=== PATIENT | male | born 1950 | race Caucasian/White ===

== ENCOUNTER 2016-07-07 03:21 | Day surgery (SDC) | payer OTHER ==
[2016-07-06 09:56] VITALS: BP 154/81
[2016-07-06 10:39] LABS: BASOPHIL % 0.2 % (0.0-0.2); EOSINOPHIL % 0.2 % (0.0-5.0); HEMATOCRIT 42.6 % (37.0-53.0); HEMOGLOBIN 15.2 g/dL (13.9-16.3); LYMPHOCYTES # 2.2 10^3/uL (1.0-4.8); LYMPHOCYTES % 20.5 % (24.0-44.0); MEAN CELL HGB 30.5 pg (26-34); MEAN CELL HGB CONCENTRATION 35.7 g/dL (33-37); MEAN CORP VOLUME 85.5 fL (78-100); MEAN PLATELET VOLUME 10.9 fL (7.8-11.0); MONOCYTES # 0.7 10^3/uL (0.3-0.8); MONOCYTES % 6.6 % (5.0-12.0); NEUTROPHIL # 7.6 10^3/uL (1.8-7.7); NEUTROPHILS % 72.2 % (41.0-85.0); RED CELL DISTRIBUTION WIDTH 12.6 % (11.5-14.5); WHITE BLOOD CELL 10.5 10^3/uL (4.5-11.0)
[2016-07-06 11:13] LABS: CALCIUM 9.3 mg/dL (8.4-10.5); CARBON DIOXIDE 25.6 mmol/L (20.0-32)
[~2016-07-07] VITALS: Ht 180.3 cm; Wt 116.6 kg
[~2016-07-07 03:21] MED LIST: ASPI-484 PO; ATEN-94 PO; CYAN10005 PO; DOXY100C15 PO; DULO30CA2 PO; ESOM40CA PO; GABA300C10 PO; GLYB5TAB3 PO; LACT1TAB3 PO; LIRA0.6P2 SQ; LISI-414 PO; MELO-174 PO; METF10002 PO; METF500T4 PO; METH10TA2 PO; PREG50CA PO
[2016-07-07] MEDS ORDERED: NS 100ML 100 ML IV ONE (05:16)
[2016-07-07] MEDS ORDERED: ANCEF ONE (05:16)
[2016-07-07] MEDS ORDERED: NS 1000ML 1,000 ML ONE (05:16)
[2016-07-07] MEDS ORDERED: LOVENOX SQ ONE ×2 (05:17→06:30)
[2016-07-07] MEDS ORDERED: ANCEF IV ONE (06:30)
[2016-07-07] MEDS ORDERED: NS 1000ML 1,000 ML IV SCH (06:30)
[2016-07-07 06:47] VITALS: BP 159/83
[2016-07-07] MEDS ORDERED: ZOFRAN ONE (08:52)
[2016-07-07] MEDS ORDERED: VERSED ONE (08:52)
[2016-07-07] MEDS ORDERED: SUBLIMAZE ONE (08:52)
[2016-07-07] MEDS ORDERED: DIPRIVAN IV ONE (08:53)
[2016-07-07] MEDS ORDERED: SODIUM CHLORIDE IR ONE (09:00)
[2016-07-07] MEDS ORDERED: SENSORCAINE-MPF 0.5% VIAL ONE (09:01)
[2016-07-07] MEDS ORDERED: SENSORCAINE-EPI 0.25%-0.0005 ONE (09:01)
[2016-07-07] MEDS ORDERED: DIPRIVAN 100 ML IV ONE (09:26)
[2016-07-07] MEDS ORDERED: TRIPLE ANTIBIOTIC OINTMENT TP ONE (09:55)
[2016-07-07 10:13] VITALS: BP 137/78
[2016-07-07 10:25] VITALS: BP 126/63
[2016-07-07] MEDS ORDERED: NORCO 7.5MG PO ONE (10:28)
[2016-07-07] MEDS ORDERED: NORCO 7.5MG PO PRN (10:30)
[2016-07-07] MEDS ORDERED: MORPHINE SULFATE IV PRN (10:30)
[2016-07-07 10:40] VITALS: BP 135/57
[2016-07-07 10:55] VITALS: BP 134/65
--- NOTE | 2016-07-07 11:24 | OPH ---
DATE OF SURGERY: 07/07/2016 PREOPERATIVE DIAGNOSIS: Right groin infection with history of abscess. POSTOPERATIVE DIAGNOSIS: Right groin infection with history of abscess, path pending. SURGEON: Chuck Pickens DO SIEVE MAKER: OR staff. ANESTHESIA: General by Ms. Alcantar, ADRI plus local used on the field. PROCEDURE PERFORMED: 1. Wide local excision. 2. Intermediate level layered closure of defect, it is 5.6 cm medial to lateral, 2.0 cm superior to inferior and 2.1 cm straight depth. ESTIMATED BLOOD LOSS: 9 mL. SPECIMENS: Sent to path with a long tag laterally and short tag superior. COUNTS: At the completion of the case, the counts were correct per OR staff. DESCRIPTION OF PROCEDURE: The patient is a 65-year-old male, known from previous consult. Prior to procedure, informed consent was obtained. At time of procedure, she was taken to the operative suite and placed in supine position. After time-out was completed, anesthesia was obtained, he is clipped, prepped and draped. Local was used to anesthetize the area and the lesion was identified and was elliptically excised widely with a sharp scalpel. Electrocautery was used to dissect down to deeper tissues and removed the area of concern from the surrounding tissues. In the process, it is marked with a long tag it was placed laterally and short tag was placed superior for marking purposes. Once the lesion was completely removed, the defect was passed off the field. The wound bed was scrubbed and irrigated x 3 with chlorhexidine. After the wound was copiously irrigated, hemostasis noted to be excellent with electrocautery. Closure pursued. Deep tissues were closed with interrupted 2-0 Vicryl, subcutaneous is closed with 3-0 Vicryl and skin is closed with 4-0 Monocryl in interrupted subcutaneous fashion. The patient was cleaned. Steri-Strips applied. Dressings applied. Drapes removed. The patient tolerated these procedures well. There were no acute complications noted. Chuck Pickens DO DR: TREVON/verónica JOB# [id number] CC: Zoie DEL ROSARIO
== END 2016-07-07 11:05 | disposition home or self-care (01) ==
LOC: SDC 03:21
PROVIDERS: ATTEND Surgery
DX: L02.214 Cutaneous abscess of groin (principal); E11.21 Type 2 diabetes mellitus with diabetic nephropathy
CPT/HCPCS: 11626; 12037; 36415; 80053; 82948; 85025; 85610; 85730; J0690; J1650; J2250; J2405; J3010; J3490 ×2; J7030 ×2

== ENCOUNTER → 2016-07-11 | Outpatient (CLI) | payer OTHER ==
[~2016-07-11] VITALS: Ht 182.9 cm; Wt 114.3 kg
[~2016-07-11] MED LIST changes: +LEXISCAN IV STA
--- NOTE | 2016-07-11 14:21 | DIREP ---
PROCEDURE:CAROTID ULTRASOUND COMPARISON:None. INDICATIONS:I25.10 CAD, E11.9 TYPE 2 DIABETES TECHNIQUE:Sonographic evaluation of carotid and vertebral arteries was performed together with grayscale, color-flow, and spectral analysis. FINDINGS: RIGHT CCA:95 cm/s RIGHT ICA: PROX:72 cm/s MID:57 cm/s DIST:94 cm/s RIGHT ECA:102 cm/s RIGHT ICA/CC:0.99 RIGHT VERTEBRAL:Direction of flow is difficult to determine. IMAGES: There is mild scattered plaque. LEFT CCA:100 cm/s LEFT ICA: PROX:59 cm/s MID:72 cm/s DIST:90 cm/s LEFT ECA:116 cm/s LEFT ICA/CCA:0.90 LEFT VERTEBRAL:Flow appears antegrade. IMAGES:There is mild scattered plaque. CONCLUSION: 1. Mild scattered plaque bilaterally without elevated peak systolic velocities to suggest hemodynamically significant carotid artery stenosis. Diameter Stenosis (%)ICA Peak Systolic Velocity (cm/s)ICA/CCA RatioNormal<125<2.0<50<125<[id number] to near occlusion>230>4J Ultrasound Med 2005; 24:2175-5091 Dictated by: Lawrence Chamberlain M.D. on 07/11/2016 at 02:13 PM
--- NOTE | 2016-07-12 08:01 | STRESS ---
DATE OF SERVICE: 07/11/2016 STRESS TEST WITH NUCLEAR IMAGING STUDY INDICATIONS: A 65-year-old diabetic gentleman with coronary artery disease with stents, history of hypertension, hyperlipidemia, has been symptomatic with chest pain, elected for stress test using nuclear imaging study. The patient presented to the Stress Lab in a fasting condition as an outpatient on 07/11/2016, signed a proper consent with all the questions being answered. The patient's baseline blood pressure was 136/78, heart rate of 74. EKG showed sinus rhythm without ischemic changes. The patient was injected 0.4 mg of regadenoson followed by stress dose of technetium sestamibi. One minute post-infusion blood pressure was 149/75, heart rate of 81. Five minutes post-infusion blood pressure was 135/76, heart rate of 72. The patient reports no symptoms. Recovery phase was uneventful. No ST changes of ischemia or arrhythmia seen on EKG monitoring. Myocardial perfusion imaging study was performed using 10.57 mCi of technetium sestamibi resting dose and 29.7 mCi of stress dose. Myocardial perfusion imaging study showed the followin. Study quality is fair. 2. LV cavity showed a visible TID especially in the short axis view. 3. SPECT perfusion images showed multiple perfusion defects that were partially corrected with prone position including the anterobasal wall, inferior wall and apex. The most prominent perfusion defect was an inferior wall perfusion defect that partially corrects with prone position. 4. Gated function study showed anterolateral hypokinesia. EF was 65%, stroke volume 66 mL. IMPRESSION: 1. Nondiagnostic stress portion of Lexiscan. 2. No EKG changes of ischemia. 3. No arrhythmia. 4. Normal hemodynamic response. 5. Myocardial perfusion imaging study was abnormal with a visible transient ischemic dilatation and multiple medium size perfusion defects including the inferior wall and anterobasal and apical sunshine. 6. Gated function study showed anterolateral hypokinesia with preserved EF of 60%. 7. Given the patient's history of previous coronary artery disease with intervention, the active symptoms and the abnormality on the stress test, this study qualifies for high risk for obstructive coronary artery disease. Clinical correlation is recommended. Warren Acevedo MD DR: ANY/verónica JOB# [id number]
--- NOTE | 2016-07-12 11:05 | ECHO ---
DATE OF SERVICE: 07/11/2016 INDICATIONS: A 65-year-old gentleman with coronary artery disease, chest pain. Echocardiographic study was requested for evaluation of systolic and diastolic function, assessment of any structural or valvular heart disease. FINDINGS: 1. Study quality is good. 2. Underlying rhythm was sinus rhythm. 3. LV function was preserved around 60%. No significant wall motion abnormality noted. Minimal LVH. LV dimension was normal . 4. RV size and EF were normal. 5. Both atria showed mild dilatation. 6. Mitral valve examination showed no evidence of regurgitation or stenosis. Doppler signal exam showed normal diastolic parameters. Mitral valve mean gradient was 1 mmHg. No stenosis. 6. Aortic valve morphology is uncertain. The valve showed no regurgitation or significant stenosis. Doppler signal examination estimated aortic valve mean velocity of 0.9 m/sec. Aortic valve area by VTI method was 3 cm2. 7. No pericardial effusion noted. 8. Pulmonary artery systolic pressure was around 35 mmHg. 9. Inferior vena cava was within normal in size and respiratory variation. IMPRESSION: 1. Preserved EF 60%-65%. No wall motion abnormality. 2. Minimal LVH. 3. Normal LV dimensions without LVOT obstruction. 4. Normal RV size and EF. 5. Mild dilatation of both atria. 6. No significant valvular dysfunction. 7. Normal diastolic parameters. 8. Normal pulmonary artery systolic pressure. 9. No pericardial effusion. 10. Normal IVC size. Warren Acevedo MD DR: ANY/verónica JOB# [id number] MIGUEL ÁNGEL
== END | disposition home or self-care (01) ==
LOC: RT 08:05
PROVIDERS: ATTEND Internal Medicine
DX: E11.9 Type 2 diabetes mellitus without complications (principal); I25.10 Atherosclerotic heart disease of native coronary artery without angina pectoris; I65.23 Occlusion and stenosis of bilateral carotid arteries
CPT/HCPCS: 78452; 93017; 93307; 93880; A9500; J2785

== ENCOUNTER 2016-07-27 01:15 | Observation (INO) | payer OTHER ==
[2016-07-25 14:06] VITALS: BP 138/73
--- NOTE | 2016-07-25 15:06 | DIREP ---
PROCEDURE:CHEST 2 VIEWS COMPARISON:None. INDICATIONS:PRE-OP HEART CATH FINDINGS: LUNGS/PLEURA:No significant pulmonary parenchymal abnormalities. No effusions. VASCULATURE:Normal. Unremarkable pulmonary vasculature. CARDIAC:Normal. No cardiac silhouette abnormality or cardiomegaly. MEDIASTINUM:Normal. No visible mass or adenopathy. BONES:Mild degenerative disc disease and spondylosis without visible acute abnormalities. OTHER:Negative. CONCLUSION:No active cardiopulmonary disease. Dictated by: Yefri Jean M.D. on 07/25/2016 at 03:05 PM
[2016-07-25 18:48] LABS: BASOPHIL % 0.2 % (0.0-0.2); EOSINOPHIL % 0.3 % (0.0-5.0); HEMATOCRIT 43.9 % (37.0-53.0); HEMOGLOBIN 15.3 g/dL (13.9-16.3); LYMPHOCYTES # 2.6 10^3/uL (1.0-4.8); LYMPHOCYTES % 27.2 % (24.0-44.0); MEAN CELL HGB 30.5 pg (26-34); MEAN CELL HGB CONCENTRATION 34.9 g/dL (33-37); MEAN CORP VOLUME 87.6 fL (78-100); MEAN PLATELET VOLUME 12.3 fL (7.8-11.0); MONOCYTES % 10.5 % (5.0-12.0); NEUTROPHIL # 5.8 10^3/uL (1.8-7.7); NEUTROPHILS % 61.5 % (41.0-85.0); RED CELL DISTRIBUTION WIDTH 13.3 % (11.5-14.5); WHITE BLOOD CELL 9.5 10^3/uL (4.5-11.0)
[2016-07-25 19:19] LABS: CALCIUM 8.9 mg/dL (8.4-10.5); CARBON DIOXIDE 26.4 mmol/L (20.0-32)
[~2016-07-27] VITALS: Ht 182.9 cm; Wt 119.3 kg
[~2016-07-27 01:15] MED LIST changes: +CYAN500T16 PO; -LEXISCAN IV STA
[2016-07-27] MEDS ORDERED: BENADRYL PO ONE (10:00)
[2016-07-27 11:03] VITALS: BP 165/86
[2016-07-27] MEDS ORDERED: HEPARIN ONE ×2 (12:18→14:27)
[2016-07-27] MEDS ORDERED: SUBLIMAZE ONE (12:18)
[2016-07-27] MEDS ORDERED: CALAN ONE (12:18)
[2016-07-27] MEDS ORDERED: VERSED ONE (12:18)
[2016-07-27] MEDS ORDERED: NITROGLYCERIN 25MG/D5W 250ML 250 ML IV ONE (12:19)
[2016-07-27] MEDS ORDERED: XYLOCAINE ONE (12:19)
[2016-07-27] MEDS ORDERED: ADENOSINE IV ONE (14:16)
[2016-07-27] MEDS ORDERED: ASPIRIN ONE (14:28)
[2016-07-27] MEDS ORDERED: BRILINTA ONE (14:28)
[2016-07-27] MEDS ORDERED: TUMS ONE (14:28)
[2016-07-27] MEDS ORDERED: APRESOLINE ONE (14:31)
[2016-07-27] MEDS: NS 1000ML 1,000 ML IV SCH ×2 (15:01→19:52)
[2016-07-27] MEDS ORDERED: NORCO 5 MG PO PRN (15:30)
[2016-07-27] MEDS ORDERED: AMBIEN PO PRN (15:30)
--- NOTE | 2016-07-27 17:16 | NUR ---
status sitting on side of bed eating dinner.
--- NOTE | 2016-07-27 18:39 | NUR ---
report received report from offgoing shift
[2016-07-27] MEDS ORDERED: MOBIC ONE (18:41)
[2016-07-27] MEDS: MOBIC PO SCH ×2 (18:43→18:45)
--- NOTE | 2016-07-27 18:58 | NUR ---
REPORT REPORT GIVEN TO ONCOMING SHIFT.
[2016-07-27 19:54] VITALS: BP 157/71
--- NOTE | 2016-07-27 20:19 | NUR ---
heart cath removed the final 2ml of air from tr band around 1930. No sign of bleeding. Placed a gauze pad and secured with a dressing tape. Educate pt for any possible leakage or bleeding sign. Will continue to monitor
[2016-07-27] MEDS: BRILINTA PO SCH (20:44)
[2016-07-27] MEDS: DOLOPHINE PO SCH (20:54)
[2016-07-27] MEDS ORDERED: LYRICA PO SCH (21:00)
[2016-07-28 00:08] VITALS: BP 127/57
[2016-07-28 04:22] VITALS: BP 124/63
[2016-07-28 05:42] LABS: BASOPHIL % 0.2 % (0.0-0.2); EOSINOPHIL % 0.1 % (0.0-5.0); HEMATOCRIT 41.5 % (37.0-53.0); HEMOGLOBIN 14.8 g/dL (13.9-16.3); LYMPHOCYTES # 2.5 10^3/uL (1.0-4.8); LYMPHOCYTES % 28.2 % (24.0-44.0); MEAN CELL HGB 30.9 pg (26-34); MEAN CELL HGB CONCENTRATION 35.7 g/dL (33-37); MEAN CORP VOLUME 86.6 fL (78-100); MEAN PLATELET VOLUME 11.1 fL (7.8-11.0); MONOCYTES # 0.9 10^3/uL (0.3-0.8); MONOCYTES % 9.7 % (5.0-12.0); NEUTROPHIL # 5.5 10^3/uL (1.8-7.7); NEUTROPHILS % 61.6 % (41.0-85.0); WHITE BLOOD CELL 8.9 10^3/uL (4.5-11.0)
[2016-07-28 06:01] LABS: CALCIUM 8.6 mg/dL (8.4-10.5); CARBON DIOXIDE 25.9 mmol/L (20.0-32)
--- NOTE | 2016-07-28 06:56 | NUR ---
report report given to o/c shift
--- NOTE | 2016-07-28 07:00 | NUR ---
REPORT REPORT RECEIVED AND ASSUMED CARE OF PT
--- NOTE | 2016-07-28 08:07 | NUR ---
ASSESSMENT ASSESSMENT COMPLETE AT THIS TIME. PT SITTING UP IN BED. C/O PAIN TO BACK 03/28. LUNGS CTA. RESPIRATIONS EVEN AND NONLABORED. ABD SOFT AND NONDISTENDED. BOWEL SOUNDS ACTIVE X4. NO SWELLING NOTED TO BLE. RADIAL AND PEDAL PULSES PRESENT AND WNL. ALL NEEDS MET. CALL LIGHT WITHIN REACH.
[2016-07-28] MEDS: DOLOPHINE PO SCH (08:31)
[2016-07-28] MEDS: MOBIC PO SCH (08:32)
[2016-07-28] MEDS: BRILINTA PO SCH (08:32)
[2016-07-28] MEDS ORDERED: TENORMIN PO SCH (09:00)
[2016-07-28] MEDS ORDERED: CYMBALTA PO SCH (09:00)
[2016-07-28] MEDS ORDERED: ASPIRIN EC PO SCH (09:00)
[2016-07-28] MEDS ORDERED: ZESTRIL PO SCH (09:00)
[2016-07-28] MEDS ORDERED: PROTONIX PO SCH (09:00)
[2016-07-28 09:11] VITALS: BP 124/56
[2016-07-28] MEDS: NS 1000ML 1,000 ML IV SCH (11:01)
--- NOTE | 2016-07-28 12:12 | NUR ---
DISCHARGE PLANNING: SS VISITED WITH PT REGARDING DISCHARGE PLANNING NEED. PT LIVES HOME WITH HIS , IS VERY INDEPENDENT AND STILL WORKS DAILY. PT DENIES NEEDING ADDITIONAL RESOURCES AT THIS TIME, AND HIS GOAL IS TO RETURN HOME TODAY TO ROUTINE SELF CARE. NO FURTHER NEEDS NOTED OR IDENTIFIED AT THIS TIME. PT SAFETY HANDOUT ADDRESSED, NO QUESTIONS ASKED, UNDERSTANDING VERBALIZED. SS TO CONTINUE TO FOLLOW AND MONITOR DISCHARGE PLANNING NEED.
--- NOTE | 2016-07-28 12:57 | PRM.DC ---
Discharge Summary Date of Arrival on Unit: July 25, 2016 Reason for Visit: coronary artery disease, abnormal stress test Additional Comments 65-year-old gentleman with history of coronary artery disease requiring angioplasty for GA 2 years ago. He had multiple risk factors for coronary artery disease. Has abnormal stress test, coronary angiography performed on 01/2017 showed RCA disease requiring angioplasty confirmed with FFR. Drug- eluting stent was utilized for angioplasty. Radial artery access site was uncomplicated. Patient tolerated procedure well and was discharged home to continue therapy as an outpatient. Patient History: Alzheimer's disease 32 MOTHER, , Age:93 Asthma 33 FATHER, , Age:98 Congestive heart failure 33 FATHER, , Age:98, Onset:85 Hypertension 32 MOTHER, , Age:93 G8 SISTER No known health problems 19 CHILD 19 CHILD Parkinson's disease PATERNAL GRANDFATHER, No Family History of: Cerebrovascular disorder Chronic obstructive pulmonary disease Diabetes insipidus Diabetes mellitus History Present Illness: General: Alert, Oriented X3 HEENT: Atraumatic, PERRLA Neck: Supple, No JVD Lungs: Clear to auscultation Heart: Regular rate Abdomen: Normal bowel sounds Extremities: No clubbing Skin: No rashes Scheduled Aspirin (Aspir 81), 1 TAB PO DAILY, (Reported) Atenolol 50MG (Tenormin 50MG), 50 MG PO DAILY, (Reported) Cyanocobalamin (Vitamin B-12) (B-12), 500 MCG PO TID, (Reported) Duloxetine Hcl (Cymbalta), 1 CAP PO DAILY, (Reported) Esomeprazole Magnesium (Nexium), 40 MG PO DAILY, (Reported) Lactobacillus Combo No.6 (Probiotic Complex), 1 EACH PO DAILY, (Reported) Lisinopril (Lisinopril), 5 MG PO DAILY, (Reported) Meloxicam (Meloxicam), 1 TAB PO DAILY, (Reported) Metformin Hcl (Metformin Hcl), 1 TAB PO HS, (Reported) Methadone Hcl (Methadone Hcl), 10 MG PO TID, (Reported) Pregabalin (Lyrica), 1 CAP PO HS, (Reported) Discontinued Medications Cyanocobalamin (Vitamin B-12) (Vitamin B-12), 1 TAB PO DAILY, (Reported) Discontinued Reason: Discontinue Doxycycline Monohydrate (Doxycycline Monohydrate), 100 MG PO BID, (Reported) Discontinued Reason: Discontinue Course Blood Pressure Systolic: 124 Blood Pressure Diastolic: 56 Blood Pressure Mean: 78 Plan Assessment - Coronary artery disease with angioplasty to the RCA using drug-eluting stent Discharge Disposition: Stable Plan - antiplatelet therapy - cardiac cath discharge instructions - risk factor modification - outpatient follow-up CASSIE FRANKS MD July 28, 2016 12:57
[2016-07-28] MEDS ORDERED: ASPI-484 PO (13:06)
[2016-07-28] MEDS ORDERED: CLOP75TA22 PO (13:07)
[2016-07-28 13:35] VITALS: BP 124/56
--- NOTE | 2016-07-28 13:43 | NUR ---
DISCHARGE PT D/C AT THIS TIME. EDUCATED PT ON PLAVIX AND ASA. PT STATES UNDERSTANDING. NO QUESTIONS VOICED. IV D/C ASCETIC TECHNIQUE. CATH TIP INTACT. PT AMBULATED OFF UNIT OT PRIVATE VEHICLE.
[2016-07-28 15:21] VITALS: BP 151/57
--- NOTE | 2016-07-28 18:02 | CCRH ---
DATE OF SERVICE: 07/27/2016 PROCEDURES PERFORMED: 1. Left heart catheterization via right radial artery access. 2. Selective coronary angiography, left and right. 3. Left ventricular end diastolic pressure measurement. 4. Left ventriculography. 5. Fractional flow reserve study of the right coronary artery. 6. Angioplasty of the RCA with primary stenting using drug-eluting stent. 7. Adenosine infusion. 8. Heparin infusion with ACT monitoring. COMPLICATIONS: None. BLOOD LOSS: Minimal, less than 15-20 mL of blood. INDICATIONS: 1. Established coronary artery disease with prior NH. 2. Abnormal stress test on 07/11/2016 with TID and multiple perfusion defects including anterobasal, apical and inferior sunshine. 3. Active symptoms of shortness of breath. 4. Suboptimally controlled risk factors. 5. Need for cardiac evaluation and clearance for abdominal surgery. 6. History of hypertension and hyperlipidemia. HISTORY OF PRESENT ILLNESS: The patient is a 65-year-old gentleman with history of NH, coronary artery disease, multiple risk factors for coronary artery disease, examined with a stress test showing findings of transient ischemic dilatation and inferoapical and basal perfusion defects. The patient was elected for coronary angiography and angioplasty, presented to [facility] in fasting condition on 07/27/2016. DESCRIPTION OF PROCEDURE: Proper consent was obtained. Risks and benefits were explained. All the questions were answered. Lab results were reviewed and allergies verified. Right wrist area was prepped and draped and sterilized and 1% lidocaine was used for local analgesia followed by advancing a 6-Polish sheath in the right radial artery without difficulty. Heparin was given for radial protection at 5000 units post radial access time. 6-Polish Evans catheter was utilized to engage left and right coronary arteries, followed by advancing a pigtail catheter into LV cavity for left ventricular end-diastolic pressure measurement and power injection LV gram in the BARBER projection. Careful examination of coronary angiography showed indeterminate RCA lesion. LAD stent was patent. The RCA lesion was around 55-65% in angiographic severity. Nevertheless, in the presence of inferior wall perfusion defect, this lesion was determined to require a functional study with FFR. The JR4 was the guide of choice utilized to engage the RCA using heparin as anticoagulation of choice achieving therapeutic ACT. The Aeris pressure wire was zeroed, equalized and advanced across the RCA using heparin for anticoagulation. The resting gradient across the RCA was 94% at the beginning of the case. Nevertheless, the patient received IV adenosine infusion which caused him to have significant symptoms of chest pain and shortness of breath with multiple AV blocks. The gradient dropped quickly to 80% with adenosine infusion using 1 minute of infusion, those findings with symptoms and hypotension. Adenosine was discontinued prior to completion of 4 minutes. Nevertheless, an abnormal FFR study was confirmed. Therefore, the lesion was determined to require intervention. Using the Aeris pressure wire, I managed to advance 3.0 x 18 Xience Alpine drug-eluting stent deployed at 12, post-dilated to 14 atmospheric pressures, achieving 0% residual stenosis, TIMI3 flow without complication, confirmed at different angiographic projections. The patient tolerated procedure well, reported chest pain with stent balloon inflation. Heparin was given with therapeutic ACT prior to stent deployment above 350 milliseconds. Catheters and wires were removed. TR band applied at the right radial artery access site. The patient was loaded with 180 mg of Brilinta at access time. He left the [facility] Coord[facility] in a stable condition. He was educated on the results of coronary angiography and angioplasty. HEMODYNAMICS: 1. Opening pressure at the central aortic pressure was 175/83 with a mean of 120 mmHg. 2. LVEDP was around 12-15 mmHg. 3. LV gram showed an ejection fraction of around 60%. No significant wall motion abnormality noted. 4. Ascending aorta was normal in size without apparent disease. 5. A gradient of less than 3 mm across the aortic valve was noted. ANGIOGRAPHIC FINDINGS: 1. The right coronary artery is a dominant vessel. The proximal to mid segment showed 55-65% short lesion, concentric, hazy looking. Distal RCA was showing minimal disease around 10-20% with luminal irregularity. The vessel bifurcates distally into RPDA and PLV medium size, tortuous branches. Multiple small acute marginal branches were seen. The vessel otherwise had no obstructive disease other than the mid segment lesion which was studied with FFR. 2. Left main is a short vessel, normal in size, minimally calcified. There is an ostial disease around 10%, nonsignificant. No damping or pressure gradient change upon catheter engaging the left main. 3. LAD showed a patent stent proximal to mid segment, otherwise the vessel is normal in size, free of disease distally. The first and second diagonal branches are medium size, tortuous vessels with mild disease. The LAD has a kink in the mid segment, otherwise nonocclusive and as mentioned, the LAD stent is patent. 4. The circumflex artery is a nondominant vessel. The proximal part was free of disease. The mid segment showed diffuse disease around 50%, nonocclusive. The vessel is nondominant, gives rise to a medium size, tortuous obtuse marginal branch without significant disease. 5. FFR study performed using Aeris pressure wire and heparin, given intravenous adenosine across the mid RCA lesion. The gradient was 94% at rest, dropped to 80% with 1 minute of adenosine infusion with development of symptoms and hypotension with AV block. Therefore, the adenosine infusion was discontinued prematurely. Nevertheless, the hemodynamic significance of the lesion has been established with this functional study. 6. The mid RCA received intervention using 3.0 x 18 drug-eluting stent to the mid segment without complication, achieving TIMI3 flow and 0% residual stenosis. IMPRESSION: 1. Successful angioplasty of the proximal to mid RCA using primary stenting with drug eluting stent confirmed by FFR and abnormal functional study with a stress test using drug-eluting stent. 2. Patent LAD stent. 3. Moderate mid circumflex artery disease, nondominant. 4. Normal left main. 5. Dominant RCA. 6. Preserved EF of 60%. 7. Normal LVEDP. 8. The procedure was well tolerated. RECOMMENDATIONS: 1. TR band protocol. 2. Dual antiplatelet therapy. 3. Observe the patient for any potential post-cardiac catheterization complication, especially with abnormal response to adenosine infusion. 4. Control of risk factors, especially hypertension and hyperlipidemia. Warren Acevedo MD DR: ANY/verónica JOB# [id number]
== END 2016-07-28 13:30 | disposition home or self-care (01) ==
LOC: SURG 01:15 → MS 15:01
PROVIDERS: ADMIT Internal Medicine; ATTEND Internal Medicine
DX: I25.10 Atherosclerotic heart disease of native coronary artery without angina pectoris (principal); I25.2 Old myocardial infarction; R94.39 Abnormal result of other cardiovascular function study; E11.9 Type 2 diabetes mellitus without complications; L03.311 Cellulitis of abdominal wall; I65.29 Occlusion and stenosis of unspecified carotid artery; Z98.61 Coronary angioplasty status; R93.1 Abnormal findings on diagnostic imaging of heart and coronary circulation; Z68.35 Body mass index [BMI] 35.0-35.9, adult; F17.210 Nicotine dependence, cigarettes, uncomplicated; E78.5 Hyperlipidemia, unspecified; I10 Essential (primary) hypertension
CPT/HCPCS: 36415 ×3; 71020; 80048 ×2; 80061; 82948 ×5; 83036; 85025 ×2; 85610; 93005; 93458; 93571; C1769 ×2; C1887 ×3; C1894 ×2; C9600; G0378 ×22; J0153; J0360; J1644 ×3; J2250; J3010; J3490 ×3; J7030; Q0163; Q9967 ×2; C1874; C9399

== ENCOUNTER 2016-10-26 20:36 | Observation (INO) | payer OTHER ==
[~2016-10-26] VITALS: Ht 182.9 cm; Wt 113.5 kg
[~2016-10-26 20:36] MED LIST changes: +CLOP75TA22 PO
[2016-10-26] MEDS ORDERED: CARDIZEM IV STA ×2 (21:03→22:20)
[2016-10-26] MEDS ORDERED: CARDIZEM ONE ×2 (21:03→22:42)
--- NOTE | 2016-10-26 21:03 | ER.PDOC ---
General Chief Complaint: Palpitations Stated Complaint: ELVATED HEART RATE, BP, AND SWEATING Time seen by MD: 20:48 Source: patient Exam Limitations: no limitations History of Present Illness Initial Comments sweating fast heart rate x 2 days Severity/Quality: moderate Activities at Onset: none Prior CP/Workup: Cardiac Cath, Heart Attack Nitro Today/Relief: No Nitro Taken Today Aspirin Today: 81 mg x 1 Associated Symptoms: denies symptoms Allergies: Coded Allergies: No Known Allergies (Unverified , 07/25/16) Home Meds Reported Medications Clopidogrel Bisulfate (PLAVIX) 75 Mg Tablet, 1 TAB PO DAILY, #30 TAB 4 Refills 07/28/16 Aspirin (ASPIR 81) 81 Mg Tablet.dr, 2 TAB PO DAILY, #30 TAB 4 Refills 07/28/16 Cyanocobalamin (Vitamin B-12) (B-12) 500 Mcg Tablet, 500 MCG PO TID, TABLET 07/25/16 Lactobacillus Combo No.6 (PROBIOTIC COMPLEX) 1 Each Tablet, 1 EACH PO DAILY, TABLET 07/06/16 Meloxicam (MELOXICAM) 15 Mg Tablet, 1 TAB PO DAILY, #30 TAB 2 Refills 07/06/16 Metformin Hcl (METFORMIN HCL) 1,000 Mg Tablet, 1 TAB PO HS, #60 TAB 5 Refills 07/06/16 Duloxetine Hcl (CYMBALTA) 30 Mg Capsule.dr, 1 CAP PO DAILY, #30 CAP 5 Refills 07/06/16 Pregabalin (LYRICA) 50 Mg Capsule, 1 CAP PO HS, #60 CAP 08/04/15 Aspirin (ASPIR 81) 81 Mg Tablet.dr, 1 TAB PO DAILY, #90 TAB 3 Refills 02/09/15 Esomeprazole Magnesium (NEXIUM) 40 Mg Capsule.dr, 40 MG PO DAILY 11/19/13 Lisinopril (LISINOPRIL) 5 Mg Tablet, 5 MG PO DAILY, TABLET 11/19/13 Atenolol 50MG (TENORMIN 50MG) 50 Mg Tablet, 50 MG PO DAILY for HYPERTENSION, # 30 TAB 11/19/13 Methadone Hcl (METHADONE HCL) 10 Mg Tablet, 10 MG PO TID, TABLET 11/19/13 Past Medical History Medical History: diabetes, heart attack Surgical History: cholecystectomy, stent Family History Significant Family History: no pertinent family hx Social History Smoking: other Alcohol Use: none Drug Use: none Constitutional: diaphoresis EENTM: denies double vision Respiratory: denies shortness of breath Cardiovascular: palpitations Gastrointestinal: denies abdomen distended Genitourinary: denies flank pain Musculoskeletal: denies muscle pain Skin: denies rash Psychiatric/Neurological: anxiety All Other Systems: Reviewed and Negative Physical Exam General Appearance: Anxious, Mild Distress HEENT: PERRL/EOMI, Normal ENT Inspection, TMs Normal, Pharynx Normal Neck: Non-Tender, Full Range of Motion, Supple, Normal Inspection Respiratory: chest non-tender, lungs clear, normal breath sounds, no respiratory distress, no accessory muscle use Cardiovascular: Tachycardia, Irregularly Irregular Gastrointestinal: Normal Bowel Sounds, No Organomegaly, No Pulsatile Mass, Non Tender, Soft 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
[2016-10-26 21:10] LABS: BASOPHIL % 0.2 % (0.0-0.2); LYMPHOCYTES # 4.1 10^3/uL (1.0-4.8); LYMPHOCYTES % 31.2 % (24.0-44.0); MEAN CELL HGB CONCENTRATION 35.9 g/dL (33-37); MEAN CORP VOLUME 83.6 fL (78-100); MEAN PLATELET VOLUME 11.1 fL (7.8-11.0); MONOCYTES # 1.1 10^3/uL (0.3-0.8); MONOCYTES % 8.2 % (5.0-12.0); NEUTROPHIL # 7.9 10^3/uL (1.8-7.7); NEUTROPHILS % 60.2 % (41.0-85.0); RED CELL DISTRIBUTION WIDTH 13.2 % (11.5-14.5); WHITE BLOOD CELL 13.2 10^3/uL (4.5-11.0)
[2016-10-26] MEDS ORDERED: NS 1000ML 1,000 ML ONE (21:11)
[2016-10-26] MEDS ORDERED: NS 1000ML 1,000 ML IV ONE (21:30)
[2016-10-26 21:33] LABS: ALANINE AMINOTRANSFERASE 37 U/L (12-78); ALKALINE PHOSPHATASE 100 U/L (50-136); ASPARTATE AMINO TRANSFERASE 24 U/L (0-35); CALCIUM 9.6 mg/dL (8.4-10.5); CARBON DIOXIDE 24.3 mmol/L (20.0-32); GLUCOSE 204 mg/dL (70-110)
--- NOTE | 2016-10-26 21:42 | DIREP ---
PROCEDURE:CHEST 1 VIEW COMPARISON:[facility], CR, XRAY CHEST 2 VWS, 07/25/2016, 02:22 PM. INDICATIONS:sob FINDINGS:Each costophrenic angle with fluid filled LUNGS/PLEURA:No significant pulmonary parenchymal abnormalities. No effusions. VASCULATURE:Normal. Unremarkable pulmonary vasculature. CARDIAC:Normal. No cardiac silhouette abnormality or cardiomegaly. MEDIASTINUM:Normal. No visible mass or adenopathy. BONES:Normal. No fracture or visible bony lesion. OTHER:Negative. CONCLUSION:No diagnostic abnormality. Dictated by: Sai Freeman Jr. on 10/26/2016 at 09:35 PM
[2016-10-26] MEDS ORDERED: NS 100ML 100 ML IV ONE (22:42)
--- NOTE | 2016-10-26 23:40 | NUR ---
ADMITTED TO ICU 2 VIA W/C. REPORT RCVD FROM MELISSA ARIAS. PT AMBULATED TO ICU BED W/O ASSISTANCE. STEADY GAIT/BALANCE NOTED. URINAL GIVEN PER REQUEST. VOIDED CLEAR YELLOW URINE W/O COMPLAINTS. CONNECTED TO ICU MONITORS. NSR NOTED ON CARDIAC RHYTHM. HR 70'S. VSS. RESP EQUAL ET NONLABORED. NO APPARENT DISTRESS NOTED. +1 PITTING EDEMA NOTED TO BLE. PT DENIES ANY PAIN OR NEEDS AT THIS TIME. BED IN LOW LOCKED POSITION, SIDE RAILS UP X2, CALL LIGHT WITHIN REACH. AT BEDSIDE.
[2016-10-27] VITALS (36 sets, daily range): BP systolic 89–186; BP diastolic 39–88
--- NOTE | 2016-10-27 00:39 | PRM.ACF1 ---
Admission Criteria Forms ATRIAL FIBRILLATION Clinical Indications for Admission to Inpatient Care (Place 'X' for any and all applicable criteria): Admission indicated for ANY ONE of the following(1)(2)(3)(4)(5) : [ ]I. Myocardial ischemia [ ]II. Dyspnea or hypoxemia [ ]III. Hemodynamic instability [ ]IV. Heart failure (e.g., pulmonary edema) (7) [ ]V. New-onset (less than 48 hours) atrial fibrillation with high risk for causing complications secondary to comorbidities (eg, symptomatic heart failure ) [ ]. Altered mental status [ ]VII. Syncope [ ]VIII. Patient has implantable cardioverter defibrillator that has fired more than once within past 24hr or needs immediate adjustment of settings that cannot be done other than in inpatient setting. (8) [ ]IX. Suspected accessory pathway (e.g., Dbuge-Nsorjbkan-Rvqzk syndrome) on ECG [ ]X. Recent systemic thromboembolism (eg, stroke) [ ]XI. Medication toxicity (e.g., digitalis) causing arrhythmia(9) [ ]XII. Underlying medical condition that necessitates inpatient care (e.g., thyrotoxicosis, pneumonia) (10) [ ]XIII. Continuous ECG monitoring is required for condition causing arrhythmia (e.g., severe hyperkalemia, hypokalemia, acid-base disturbance).(11)(12)(13) [X]XIV. Initiation of antiarrhythmic drug therapy is needed in patient at high risk of adverse effects as indicated by ANY ONE of the following: [ ]a) Significant structural heart disease (e.g., reduced ejection fraction, congenital heart disease, valvular heart disease) [ ]b) Prolonged QT interval [ ]c) Underlying sinus node or atrioventricular conduction disturbances [X]d) Need for treatment with antiarrhythmic drugs that have significant proarrhythmic potential (e.g., dofetilide, sotalol, procainamide) [ ]e) Patient whose sinus rhythm has never been observed on ECG [ ]XV. Intolerable symptoms despite optimal outpatient treatment [ ]XVI. Elective or urgent cardioversion that cannot be performed on outpatient basis or during observation care. [A] (Use also Atrial Fibrillation: Observation Care ) as appropriate.(14) [ ]XVII.Contraindications and/or Inappropriate clinical situations for Observational Care in patients with Atrial Fibrillation, when ANY ONE of the following is required: [ ]a) Patient with High risk of cardiac embolism (e.g, patients with previous cardiac embolism, LVEF < 40%, age >75 and patients with prosthetic valve) 18 [ ]b) Patient with Moderate risk including DM patient, CAD and patient aged 65-75 18 [ ]c) Patient with any change in cardiac biomarker especially troponin should be managed as high risk in an inpatient setting 19 [ ]d) Physician judgement irrespective of ECG and other diagnostic findings 20 [ ]XVIII.General contraindications and/or Inappropriate clinical situations for Observational Care in patients with Atrial Fibrillation, when ANY ONE of the following is required: [ ]a) Prediction of prolongation of LOS based on ANY ONE of the following may be considered as a contraindication for observational care 2, 3, 4, 5, 6, 7, 8, 9, 10, 11 [ ]i) Age > 65 yrs. [ ]ii) Patient arriving by ambulance [ ]iii) Patient with high acuity [ ]iv) Patient requiring vital sign monitoring [ ]v) Patient on IV medication [ ]b) Systolic blood pressures 180mmHg 3,12 [ ]c) Patient with altered mental status including delirium and other alteration of consciousness3 [ ]d) Patient whose discharge disposition will be to a assisted home or rehabilitation home should not be managed in Emergency Department Observation Unit. CMS rule requires 3 days hospital stay before such placement.3,13 [ ]e) Patient with failure to thrive due to broad array of etiologies 3,16,17 [ ]f) Inability to ambulate 3,14 Extended stay beyond goal length of stay may be needed for (1)(25)(26): [ ]a) Unstable comorbidities [ ]b) Persistently uncontrolled atrial fibrillation or other arrhythmias [ ]c) Acute thromboembolic event (e.g., stroke, limb ischemia) [ ]d) Need for inpatient attainment of full anticoagulation The original [employer] content created by [employer] has been revised. The portions of the content which have been revised are identified through the use of italic text or in bold, and [employer] has neither reviewed nor approved the modified material. All other unmodified content is copyright [employer]. Please see references footnoted in the original [employer] edition 2016 Is [facility]/Ya's added/comple: YES [facility] Oct 27, 2016 00:39
[2016-10-27] MEDS ORDERED: NS 1000ML 1,000 ML ONE (00:50)
--- NOTE | 2016-10-27 02:55 | NUR ---
BP 89/39 PT RESTING IN L LATERAL POSITION. INSTR. TO PLACE SELF IN SUPINE POSITION OR IN R LATERAL POSITION D/T HYPOTENSION. PT NOW IN R LATERAL POSITION. WILL CONTINUE TO MONITOR.
--- NOTE | 2016-10-27 05:52 | NUR ---
RT/LAB AT BEDSIDE FOR ROUTINE EKG/LAB DRAW
[2016-10-27 06:06] LABS: BASOPHIL % 0.3 % (0.0-0.2); HEMOGLOBIN 15.9 g/dL (13.9-16.3); LYMPHOCYTES # 3.8 10^3/uL (1.0-4.8); MEAN CELL HGB 30.3 pg (26-34); MEAN CELL HGB CONCENTRATION 35.8 g/dL (33-37); MEAN CORP VOLUME 84.6 fL (78-100); MEAN PLATELET VOLUME 11.1 fL (7.8-11.0); MONOCYTES # 1.2 10^3/uL (0.3-0.8); MONOCYTES % 10.4 % (5.0-12.0); NEUTROPHIL # 6.2 10^3/uL (1.8-7.7); RED CELL DISTRIBUTION WIDTH 13.1 % (11.5-14.5); WHITE BLOOD CELL 11.3 10^3/uL (4.5-11.0)
[2016-10-27 06:21] LABS: CARBON DIOXIDE 27.8 mmol/L (20.0-32)
--- NOTE | 2016-10-27 06:45 | NUR ---
Report received from JUANA Ken and [facility] care.
--- NOTE | 2016-10-27 06:45 | NUR ---
REPORT GIVEN TO ONCOMING SHIFT
--- NOTE | 2016-10-27 07:20 | NUR ---
Patient lying in bed awake, alert and oriented x3, on RA with SPO2 at 93%, IV G 20 L hand with NS infusing at 80 ml/hr, Cardizem drip at 5. Bowel sound x4, lung sound clear. Patient denies pain at this time. Bed in low lock position. Side rails up x 2. Call light within reach.
[2016-10-27] MEDS ORDERED: LOVENOX SQ ONE (07:35)
--- NOTE | 2016-10-27 08:15 | NUR ---
DISCHARGE PLAN CM VISITED WITH PATIENT AND CONCERNING PATIENTS DISCHARGE PLAN AND NEED. PATIENT STATED HE LIVES @ HOME WITH HIS , IS VERY INDEPENDENT ON ADLS AND WORKS DAILY. PATIENT AND DENY CURRENT NEEDS @ THIS TIME. CONTACT INFORMATION PROVIDED. CURRENT GOAL FOR PATIENT IS TO RETURN BACK HOME WITH TO ROUTINE SELF CARE UPON DISCHARGE. NO FURTHER CM OR DISCHARGE NEEDS KNOWN @ THIS TIME.
--- NOTE | 2016-10-27 08:45 | NUR ---
Dr. Acevedo at bedside. New order received. Wean off Cardizem. Cardiac diet. Patient uses vape, Nicotine patch 14 mg.
--- NOTE | 2016-10-27 08:50 | NUR ---
Called dietary for patient's breakfast tray.
[2016-10-27] MEDS ORDERED: LOVENOX SQ SCH (09:00)
--- NOTE | 2016-10-27 09:00 | NUR ---
Called [facility] for room availability. Patient going to room 307.
[2016-10-27] MEDS ORDERED: CYMBALTA ONE (09:43)
[2016-10-27] MEDS ORDERED: ZESTRIL ONE (09:43)
[2016-10-27] MEDS ORDERED: MOBIC ONE (09:43)
[2016-10-27] MEDS ORDERED: PROTONIX PO ONE (09:44)
[2016-10-27] MEDS ORDERED: NICOTINE 14MG PATCH TD ONE (09:44)
[2016-10-27] MEDS ORDERED: ASPIRIN EC ONE (09:44)
[2016-10-27] MEDS ORDERED: TENORMIN ONE (09:44)
[2016-10-27] MEDS ORDERED: PLAVIX ONE (09:45)
[2016-10-27] MEDS ORDERED: BACID ONE (09:45)
[2016-10-27] MEDS ORDERED: DOLOPHINE ONE (09:51)
[2016-10-27] MEDS: DOLOPHINE PO SCH ×2 (09:53→14:37)
--- NOTE | 2016-10-27 10:40 | NUR ---
Vital signs before discharge as follows: HR-73, RR-20, SPO2-92, BP-122/71, T-98.0.
--- NOTE | 2016-10-27 10:43 | NUR ---
Informed dietary regarding patient's transfer to room 307.
--- NOTE | 2016-10-27 10:45 | NUR ---
Patient transported to [facility] room 307 by wheelchair on room air, with all of his personal belongings accompanied by his . Report given to JUANA Mack and relinquished care.
--- NOTE | 2016-10-27 10:45 | NUR ---
ASSUMED CARE Receiced report assumed care of Pt. Pt oriented to room. call light in reach. bed in lowest locked form. Pt denies wants or needs. no S/S of distress noted. will continue to monitor.
--- NOTE | 2016-10-27 11:17 | PCM.HP ---
History of Present Illness Reason for Visit: Nan mehta with RVR History of Present Illness 65-year-old gentleman, history of hypertension, coronary artery disease with recent angioplasty of the RCA on 07/27/2016. no prior history of atrial fibrillation reports a week of feeling unwell, occasional palpitations, diaphoresis and dizziness. Yesterday the patient has had nausea and worsening diaphoresis than usual. Presented to the emergency room was found on telemetry to have Nan mehta with RVR, his ventricular response was 150 beats per minutes. He was started on IV Cardizem drip which successfully converted the patient to sinus rhythm. He was admitted to the ICU overnight and IV Cardizem, he remained in sinus rhythm since conversion. cardiac enzymes are negative, vital signs are stable. The patient is planning major back surgery on November 05. He is unable to take oral anticoagulation. His chads vascular score is around 3 therefore I have recommended oral anticoagulation that could start right after back surgery. He was educated in the presence of his on stroke risk with Nan mehta. Patient is willing to take the risk on therapy is over with back surgery. Past Medical History Cardiac: CAD, CHF, HTN, Hyperlipidemia GI: Constipation Heme/Onc: Anemia NOS Musculoskeletal: Chronic Low Back Pain Renal/: Chronic Renal Insuff Endocrine: Diabetes Past Social History Smoke: <1 pack per day (he also uses VAPE) Alcohol: rare Lives: with Family Travel Hx EBOLA RISK:Travel to/contact w: No Is pt experiencing any Ebola s: No Review of Systems Constitutional: Weakness Eyes: No: Pain, Vision change, Conjunctivae inflammation, Eyelid inflammation, Other, Redness ENT: No: Ear pain, Ear discharge, Nose pain, Nose discharge, Nose congestion, Mouth pain, Mouth swelling, Throat pain, Throat swelling, Other Respiratory: No: Cough, Dry, Shortness of breath, SOB with excertion, Wheezing , Hemoptysis, Pleuritic Pain, Sputum, Wheezing, Other Cardiovascular: Palpitations, Lt Headedness ( lightheadedness), Other ( diaphoresis) Gastrointestinal: No: Nausea, Vomiting, Abdominal Pain, Diarrhea, Constipation , Melena, Hematochezia, Other Genitourinary: No Dysuria, No Frequency, No Incontinence, No Hematuria, No Retention, No Other Musculoskeletal: other ( chronic back pain) Allergies: Coded Allergies: No Known Allergies (Unverified , 07/25/16) Scheduled Aspirin (Aspir 81), 2 TAB PO DAILY, (Reported) Atenolol 50MG (Tenormin 50MG), 50 MG PO DAILY, (Reported) Clopidogrel Bisulfate (Plavix), 1 TAB PO DAILY, (Reported) Cyanocobalamin (Vitamin B-12) (B-12), 500 MCG PO TID, (Reported) Duloxetine Hcl (Cymbalta), 1 CAP PO DAILY, (Reported) Esomeprazole Magnesium (Nexium), 40 MG PO DAILY, (Reported) Lactobacillus Combo No.6 (Probiotic Complex), 1 EACH PO DAILY, (Reported) Lisinopril (Lisinopril), 5 MG PO DAILY, (Reported) Meloxicam (Meloxicam), 1 TAB PO DAILY, (Reported) Metformin Hcl (Metformin Hcl), 1 TAB PO HS, (Reported) Methadone Hcl (Methadone Hcl), 10 MG PO TID, (Reported) Pregabalin (Lyrica), 1 CAP PO HS, (Reported) Discontinued Medications Aspirin (Aspir 81), 1 TAB PO DAILY, (Reported) Discontinued Reason: Discontinue VTE VTE Risk Total Score: 5 VTE Risk Score VTE Risk: Score 0-1 = Low Risk (Aggressive mobilization; early ambulation; no VTE prophylaxis required) Score 2: Moderate Risk (Intermittent/Pneumatic Compression Device OR Lovenox/Heparin/Coumadin) Score 3-4: High Risk (Intermittent/Pneumatic Compression Device AND Lovenox/Heparin/Coumadin) Score > or =5: Highest Risk (Intermittent/Pneumatic Compression Device AND Lovenox/Heparin/Coumadin) Antico:Hep/LMWH/Coum/Xarelto: Yes VTE VTE Present on Admission: No Currently receiving anticoagul: Yes VTE Risk Total Score: 5 Exam Vital Signs Vital Signs Date Time Temp Pulse Resp B/P (MAP) Pulse Ox O2 Delivery O2 Flow Rate FiO2 10/27/16 10:45 73 31 95 10/27/16 10:24 143/74 (97) 10/27/16 07:23 97.8 10/27/16 07:20 Room Air General Appearance: Alert, Oriented X3 HEENT: Atraumatic ( shortly obese neck) Respiratory: Clear to auscultation Cardiovascular: Regular rate ( currently in regular rhythm with soft systolic murmur) Abdominal: Normal bowel sounds Extremities: No clubbing Skin: No rash Assessment/Plan Assessment/Plan Assessment/Plan - paroxysmal atrial fibrillation with rapid ventricular response. Converted successfully to sinus rhythm with one dose of Cardizem - stable coronary artery disease - chronic low back pain preventing for back surgery [facility] the [facility] - hypertension hyperlipidemia and diabetes mellitus - high chads vascular score requiring oral anticoagulation, patient desired to use this option after back surgery scheduled on 11/14/16. patient converted sinus rhythm, asymptomatic currently. Vital signs are stable. He desired to be discharged home, I transferred him to medical floor and discharged this evening. Start Cardizem CD 120 mg by mouth daily. Continue beta lai therapy, patient is willing to postpone oral antibiotic ideation therapy until over with back surgery. I will arrange for one week of Holter monitor to assess the burden of A. fib for outpatient event monitor. this document should serve as a discharge summary Problems: Patient History: Alzheimer's disease 32 MOTHER, , Age:93 Asthma 33 FATHER, , Age:98 Congestive heart failure 33 FATHER, , Age:98, Onset:87 Hypertension 32 MOTHER, , Age:93 G8 SISTER No known health problems 19 CHILD 19 CHILD Parkinson's disease PATERNAL GRANDFATHER, No Family History of: Cerebrovascular disorder Chronic obstructive pulmonary disease Diabetes insipidus Diabetes mellitus CASSIE FRANKS MD Oct 27, 2016 11:16
[2016-10-27] MEDS ORDERED: DILT120C PO (11:21)
[2016-10-27] MEDS ORDERED: CARDIZEM PO SCH (12:00)
[2016-10-27] MEDS ORDERED: VITAMIN B-12 PO SCH (15:00)
[2016-10-27] MEDS ORDERED: GLUCOPHAGE PO SCH (21:00)
[2016-10-27] MEDS ORDERED: LYRICA PO SCH (21:00)
[2016-10-28] MEDS ORDERED: TENORMIN PO SCH (09:00)
[2016-10-28] MEDS ORDERED: ASPIRIN EC PO SCH (09:00)
[2016-10-28] MEDS ORDERED: PROTONIX PO SCH (09:00)
[2016-10-28] MEDS ORDERED: CYMBALTA PO SCH (09:00)
[2016-10-28] MEDS ORDERED: PLAVIX PO SCH (09:00)
[2016-10-28] MEDS ORDERED: BACID PO SCH (09:00)
[2016-10-28] MEDS ORDERED: ZESTRIL PO SCH (09:00)
[2016-10-28] MEDS ORDERED: NICOTINE 14MG PATCH TD SCH (09:00)
[2016-10-28] MEDS ORDERED: MOBIC PO SCH (09:00)
== END 2016-10-27 16:30 | disposition home or self-care (01) ==
LOC: ER 20:36 → ICU 22:22 → INTOOBSV 22:22 → OBSVTOIN 22:22 → EDBEDREQ 23:09 → MS 10-27 10:44
PROVIDERS: ADMIT Internal Medicine; ATTEND Internal Medicine
DX: I48.0 Paroxysmal atrial fibrillation (principal); E11.9 Type 2 diabetes mellitus without complications; I25.10 Atherosclerotic heart disease of native coronary artery without angina pectoris; G89.29 Other chronic pain; E78.5 Hyperlipidemia, unspecified; M54.5 Low back pain; I50.9 Heart failure, unspecified; I11.0 Hypertensive heart disease with heart failure; F17.210 Nicotine dependence, cigarettes, uncomplicated; Z90.49 Acquired absence of other specified parts of digestive tract; Z95.1 Presence of aortocoronary bypass graft
CPT/HCPCS: 36415 ×2; 71010; 80053 ×2; 82550; 82553; 84484; 85025 ×2; 93005 ×2; 96372; 96374; 96376; 99285; G0378 ×18; J1650; J7030 ×2; J7050; 96361; 96375; J3490; J8499

== ENCOUNTER → 2016-11-08 | Outpatient (CLI) | payer OTHER ==
[~2016-11-08] MED LIST changes: +DILT120C PO
[2016-11-08 10:04] LABS: HEMOGLOBIN 16.4 g/dL (13.9-16.3); MEAN CELL HGB 30.5 pg (26-34); MEAN CELL HGB CONCENTRATION 36.3 g/dL (33-37); MEAN PLATELET VOLUME 11.1 fL (7.8-11.0); WHITE BLOOD CELL 11.2 10^3/uL (4.5-11.0)
--- NOTE | 2016-11-08 10:16 | DIREP ---
PROCEDURE:CHEST 2 VIEWS COMPARISON:[facility], CR, XRAY CHEST SINGLE VW, 10/26/2016, 08:24 PM. INDICATIONS:PRE-OP LUMBAR STENOSIS FINDINGS: LUNGS/PLEURA:No significant pulmonary parenchymal abnormalities. No effusions. VASCULATURE:Normal. Unremarkable pulmonary vasculature. CARDIAC:Normal. No cardiac silhouette abnormality or cardiomegaly. MEDIASTINUM:Normal. No visible mass or adenopathy. BONES:Moderate multilevel thoracic spondylosis. OTHER:Negative. CONCLUSION: 1. No active cardiopulmonary process demonstrated. Dictated by: Uche Reyes M.D. on 11/08/2016 at 10:13 AM
[2016-11-08 10:47] LABS: CALCIUM 9.5 mg/dL (8.4-10.5); CARBON DIOXIDE 28.8 mmol/L (20.0-32)
== END | disposition home or self-care (01) ==
LOC: RAD 08:59
PROVIDERS: ATTEND Neurological Surgery
DX: Z01.818 Encounter for other preprocedural examination (principal); M48.06 Spinal stenosis, lumbar region
CPT/HCPCS: 36415; 71020; 80053; 85027; 85610; 85730; 93005

== ENCOUNTER → 2017-10-25 | Outpatient (CLI) | payer OTHER ==
[~2017-10-25] MED LIST changes: -CLOP75TA22 PO; +CLOP75TA52 PO; -DILT120C PO; +DILT120C99 PO; -MELO-174 PO; +MELO15TA24 PO; -METF10002 PO; +METF10003 PO; -METF500T4 PO; +METF500T5 PO
[2017-10-25 11:09] LABS: BILIRUBIN,URINE NEGATIVE (NEGATIVE); UROBILINOGEN,URINE NORMAL (NEGATIVE)
[2017-10-25 11:20] LABS: APPEARANCE,URINE CLEAR (CLEAR); UA COLOR YELLOW (YELLOW)
[2017-10-25 11:23] LABS: HEMOGLOBIN 16.8 g/dL (13.9-16.3); MEAN CELL HGB 30.2 pg (26-34); MEAN CELL HGB CONCENTRATION 35.7 g/dL (33-37); MEAN CORP VOLUME 84.5 fL (78-100); MEAN PLATELET VOLUME 10.9 fL (7.8-11.0); RED CELL DISTRIBUTION WIDTH 13.3 % (11.5-14.5)
[2017-10-25 12:40] LABS: CALCIUM 9.2 mg/dL (8.4-10.5); CARBON DIOXIDE 25.8 mmol/L (20.0-32)
== END | disposition home or self-care (01) ==
LOC: LAB 10:44
PROVIDERS: ATTEND Neurological Surgery
DX: M48.061 Spinal stenosis, lumbar region without neurogenic claudication (principal); I11.0 Hypertensive heart disease with heart failure; I50.9 Heart failure, unspecified; E11.9 Type 2 diabetes mellitus without complications; E78.5 Hyperlipidemia, unspecified; Z79.899 Other long term (current) drug therapy
CPT/HCPCS: 36415; 80053; 81002; 82607; 85027; 85610; 85730; 87070

== ENCOUNTER → 2017-11-08 | Outpatient (CLI) | payer OTHER ==
[2017-11-08 09:33] LABS: BASOPHIL % 0.2 % (0.0-0.2); EOSINOPHIL % 0.2 % (0.0-5.0); HEMOGLOBIN 17.3 g/dL (13.9-16.3); LYMPHOCYTES % 24.6 % (24.0-44.0); MEAN CELL HGB 30.7 pg (26-34); MEAN CORP VOLUME 85.3 fL (78-100); MEAN PLATELET VOLUME 11.2 fL (7.8-11.0); MONOCYTES # 1.1 10^3/uL (0.3-0.8); MONOCYTES % 8.9 % (5.0-12.0); NEUTROPHILS % 65.8 % (41.0-85.0); RED CELL DISTRIBUTION WIDTH 13.6 % (11.5-14.5); WHITE BLOOD CELL 12.2 10^3/uL (4.5-11.0)
[2017-11-08 09:51] LABS: CALCIUM 8.9 mg/dL (8.4-10.5); CARBON DIOXIDE 24.5 mmol/L (20.0-32)
== END | disposition home or self-care (01) ==
LOC: LAB 09:16
PROVIDERS: ATTEND Nurse Practitioner Family
DX: E11.42 Type 2 diabetes mellitus with diabetic polyneuropathy (principal); E55.9 Vitamin D deficiency, unspecified
CPT/HCPCS: 36415; 80053; 80061; 82306; 83036; 83690; 85025

== ENCOUNTER → 2017-11-26 | Outpatient (CLI) | payer OTHER ==
[2017-11-26 10:29] LABS: HEMOGLOBIN 16.6 g/dL (13.9-16.3); MEAN CELL HGB 31.1 pg (26-34); MEAN CELL HGB CONCENTRATION 35.3 g/dL (33-37); MEAN PLATELET VOLUME 10.5 fL (7.8-11.0); RED CELL DISTRIBUTION WIDTH 13.9 % (11.5-14.5); WHITE BLOOD CELL 7.8 10^3/uL (4.5-11.0)
[2017-11-26 10:31] LABS: BILIRUBIN,URINE NEGATIVE (NEGATIVE); UROBILINOGEN,URINE NORMAL (NEGATIVE)
[2017-11-26 10:35] LABS: APPEARANCE,URINE CLEAR (CLEAR); UA COLOR YELLOW (YELLOW)
[2017-11-26 11:17] LABS: CALCIUM 9.1 mg/dL (8.4-10.5); CARBON DIOXIDE 25.1 mmol/L (20.0-32)
== END | disposition home or self-care (01) ==
LOC: LAB 10:04
PROVIDERS: ATTEND Neurological Surgery
DX: M48.061 Spinal stenosis, lumbar region without neurogenic claudication (principal); I11.0 Hypertensive heart disease with heart failure; I50.9 Heart failure, unspecified; E11.42 Type 2 diabetes mellitus with diabetic polyneuropathy; E78.00 Pure hypercholesterolemia, unspecified; I48.91 Unspecified atrial fibrillation; K21.9 Gastro-esophageal reflux disease without esophagitis; I25.10 Atherosclerotic heart disease of native coronary artery without angina pectoris; Z87.891 Personal history of nicotine dependence; Z90.49 Acquired absence of other specified parts of digestive tract; Z79.899 Other long term (current) drug therapy
CPT/HCPCS: 36415; 80053; 81000; 82607; 85027; 85610; 85730; 87070

== ENCOUNTER → 2018-02-06 | Outpatient (CLI) | payer OTHER ==
[~2018-02-06] MED LIST changes: -METF10003 PO; +METF10007 PO; +METF500T17 PO; -METF500T5 PO
--- NOTE | 2018-02-08 11:21 | DIET.OP ---
Outpatient Nutritional Edu Time In: 15:00 Time Out: 16:00 Dietary/Nutritional Education Anthropometrics: Height: 70 in Weight: 258 pounds BMI: 37.0 UBW: 311 %IBW: 147% Medical History: Type 2 DM, HTN Medication History: Lisa Douglas Diet Recall: Pork Chops, Sausage, [place], [place] (lettuce, no hazel, natural cheese), coffee with splenda, cheetos Patient Goal: "I want to figure out a diet that will keep my blood sugars stable." Subjective Data: The patient was consulted on a proper Diabetic diet and given ways to improve diet to achieve his personal goals. He says he checks his blood sugars many times per day. His blood sugars run between 100-200 mg/dL. He expressed that he wants to improve his diet to keep his sugars level throughout the day and lose some weight. Calculated that he needs to consume a 2000 ADA diet with 30 minutes of exercise 7 days per week. Described to the patient that he needs to choose carbohydrates that are complex and high in fiber for more sustainable blood sugar. Gave the patient a breakdown how how many carbohydrate servings he should have per meal/snack. He needs 225g of CHO per day. Education Material: Choose Your Food: Food list for Diabetes KASIA KAPADIA RD Feb 08, 2018 11:21
== END | disposition home or self-care (01) ==
LOC: DED 14:28
PROVIDERS: ATTEND Nurse Practitioner Family
DX: E11.42 Type 2 diabetes mellitus with diabetic polyneuropathy (principal); I48.91 Unspecified atrial fibrillation
CPT/HCPCS: 97802

== ENCOUNTER → 2018-02-25 | Outpatient (CLI) | payer OTHER ==
[2018-02-25 09:19] LABS: BASOPHIL % 0.3 % (0.0-0.2); EOSINOPHIL # 0.1 10^3/uL (0.0-0.2); EOSINOPHIL % 0.9 % (0.0-5.0); HEMOGLOBIN 16.5 g/dL (13.9-16.3); LYMPHOCYTES # 3.2 10^3/uL (1.0-4.8); MEAN CELL HGB 28.8 pg (26-34); MEAN CELL HGB CONCENTRATION 33.7 g/dL (33-37); MEAN CORP VOLUME 85.5 fL (78-100); MEAN PLATELET VOLUME 11.7 fL (7.8-11.0); MONOCYTES # 1.3 10^3/uL (0.3-0.8); NEUTROPHIL # 8.1 10^3/uL (1.8-7.7); NEUTROPHILS % 63.4 % (41.0-85.0); RED CELL DISTRIBUTION WIDTH 14.2 % (11.5-14.5); WHITE BLOOD CELL 12.8 10^3/uL (4.5-11.0)
[2018-02-25 09:43] LABS: CALCIUM 9.1 mg/dL (8.4-10.5); CARBON DIOXIDE 30.4 mmol/L (20.0-32)
== END | disposition home or self-care (01) ==
LOC: LAB 09:00
PROVIDERS: ATTEND Nurse Practitioner Family
DX: E11.21 Type 2 diabetes mellitus with diabetic nephropathy (principal); L08.9 Local infection of the skin and subcutaneous tissue, unspecified; E78.5 Hyperlipidemia, unspecified; R53.83 Other fatigue; E55.9 Vitamin D deficiency, unspecified
CPT/HCPCS: 36415; 80053; 80061; 82043; 82306; 83036; 84439; 84443; 85025

== ENCOUNTER → 2018-03-06 | Outpatient (CLI) | payer OTHER ==
--- NOTE | 2018-03-06 13:35 | DIREP ---
PROCEDURE:CHEST 2 VIEWS COMPARISON:None. INDICATIONS:R07.9 CHEST PAIN FINDINGS: LUNGS/PLEURA:No significant pulmonary parenchymal abnormalities. No effusions. VASCULATURE:Normal. Unremarkable pulmonary vasculature. CARDIAC:Normal. No cardiac silhouette abnormality or cardiomegaly. MEDIASTINUM:Normal. No visible mass or adenopathy. BONES:Osteophytes in the thoracic spine. OTHER:Negative. CONCLUSION:No cardiopulmonary abnormalities. No abnormalities to explain the patient's symptoms. No change from previous study. Dictated by: Ronen Sal M.D. on 03/06/2018 at 01:20 PM
== END | disposition home or self-care (01) ==
LOC: RAD 11:40
PROVIDERS: ATTEND Nurse Practitioner Family
DX: R07.9 Chest pain, unspecified (principal); M25.78 Osteophyte, vertebrae; Z87.891 Personal history of nicotine dependence
CPT/HCPCS: 71046

== ENCOUNTER → 2018-04-23 | Outpatient (CLI) | payer OTHER ==
[2018-04-23 11:46] LABS: BASOPHIL % 0.4 % (0.0-0.2); EOSINOPHIL # 0.1 10^3/uL (0.0-0.2); EOSINOPHIL % 0.5 % (0.0-5.0); HEMOGLOBIN 16.6 g/dL (13.9-16.3); LYMPHOCYTES # 2.6 10^3/uL (1.0-4.8); LYMPHOCYTES % 25.9 % (24.0-44.0); MEAN CELL HGB 28.9 pg (26-34); MEAN CELL HGB CONCENTRATION 35.2 g/dL (33-37); MEAN CORP VOLUME 81.9 fL (78-100); MEAN PLATELET VOLUME 11.4 fL (7.8-11.0); NEUTROPHIL # 6.3 10^3/uL (1.8-7.7); NEUTROPHILS % 62.9 % (41.0-85.0); RED CELL DISTRIBUTION WIDTH 14.9 % (11.5-14.5); WHITE BLOOD CELL 10.1 10^3/uL (4.5-11.0)
[2018-04-23 12:03] LABS: CALCIUM 8.8 mg/dL (8.4-10.5); CARBON DIOXIDE 25.1 mmol/L (20.0-32)
--- NOTE | 2018-04-23 15:32 | DIREP ---
PROCEDURE:CT ABDOMEN W/ + W/O CONTRAST COMPARISON:None. INDICATIONS:LUQ PAIN TECHNIQUE:Axial images were created through the abdomen with and without non-ionic intravenous contrast material. Oral contrast was administered. Sagittal and coronal reconstructions were performed from source images. FINDINGS: LUNG BASES:Normal. No visible pulmonary or pleural disease. LIVER:Normal. No significant liver lesions are identified. BILIARY:The gallbladder is surgically absent. There is no biliary ductal dilatation. PANCREAS:Normal. No lesion, fluid collection, ductal dilatation, or atrophy. SPLEEN:Normal. No enlargement or focal lesion. ADRENALS:Normal. No mass or enlargement. URINARY TRACT:Normal. No focal lesions or hydronephrosis. AORTA/VASCULAR:There are aortic atherosclerotic calcifications present. No aneurysm. RETROPERITONEUM:Normal. No mass or adenopathy. BOWEL/MESENTERY:Regions of gastric wall thickening are questioned. Consider endoscopic evaluation ABDOMINAL WALL:Normal. No mass or hernia. PELVIC ORGANS:The pelvis was not imaged. BONES:Surgical changes of the lumbar spine OTHER:Negative. CONCLUSION:Cholecystectomy. Regions of gastric wall thickening are suspected. Direct visualization should be considered Dictated by: Sai Avila MD on 04/23/2018 at 03:18 PM
== END | disposition home or self-care (01) ==
LOC: CT 11:31
PROVIDERS: ATTEND Nurse Practitioner Family
DX: R10.12 Left upper quadrant pain (principal); I70.0 Atherosclerosis of aorta; D72.829 Elevated white blood cell count, unspecified; Z90.49 Acquired absence of other specified parts of digestive tract
CPT/HCPCS: 36415; 74170; 80053; 83690; 85025; 86677; Q9965

== ENCOUNTER → 2018-06-14 | Outpatient (CLI) | payer OTHER ==
[2018-06-14 10:48] LABS: BASOPHIL % 0.3 % (0.0-0.2); EOSINOPHIL % 0.4 % (0.0-5.0); HEMOGLOBIN 16.4 g/dL (13.9-16.3); LYMPHOCYTES # 2.2 10^3/uL (1.0-4.8); LYMPHOCYTES % 21.8 % (24.0-44.0); MEAN CELL HGB 29.6 pg (26-34); MEAN CELL HGB CONCENTRATION 35.6 g/dL (33-37); MEAN CORP VOLUME 83.2 fL (78-100); MEAN PLATELET VOLUME 11.4 fL (7.8-11.0); MONOCYTES # 0.9 10^3/uL (0.3-0.8); MONOCYTES % 8.5 % (5.0-12.0); NEUTROPHIL # 7.1 10^3/uL (1.8-7.7); NEUTROPHILS % 68.7 % (41.0-85.0); RED CELL DISTRIBUTION WIDTH 14.5 % (11.5-14.5); WHITE BLOOD CELL 10.3 10^3/uL (4.5-11.0)
[2018-06-14 11:00] LABS: BILIRUBIN,URINE NEGATIVE (NEGATIVE); UROBILINOGEN,URINE NORMAL (NEGATIVE)
[2018-06-14 11:04] LABS: APPEARANCE,URINE CLEAR (CLEAR); UA COLOR YELLOW (YELLOW)
[2018-06-14 11:13] LABS: CALCIUM 9.1 mg/dL (8.4-10.5); CARBON DIOXIDE 28.4 mmol/L (20.0-32)
== END | disposition home or self-care (01) ==
LOC: LAB 10:28
PROVIDERS: ATTEND Nurse Practitioner Family
DX: E11.42 Type 2 diabetes mellitus with diabetic polyneuropathy (principal); L02.211 Cutaneous abscess of abdominal wall; I25.10 Atherosclerotic heart disease of native coronary artery without angina pectoris
CPT/HCPCS: 36415; 80053; 80061; 81002; 83036; 85025

== ENCOUNTER → 2018-06-27 | Outpatient (CLI) | payer OTHER ==
--- NOTE | 2018-06-27 11:33 | DIREP ---
PROCEDURE:XRAY HIP MIN 2VW-LT COMPARISON:[facility], CR, PELVIS AP, 11/19/2013, 00:00 AM. INDICATIONS:M25.552 PAIN IN LEFT HIP FINDINGS: BONES:Mild osteophyte formation. No fracture or malalignment. JOINTS:Normal. SOFT TISSUES:Normal. OTHER:No additional findings. CONCLUSION:Mild degenerative change, no acute findings. Study similar to prior Dictated by: Sai Avila MD on 06/27/2018 at 11:28 AM
--- NOTE | 2018-06-27 11:41 | DIREP ---
PROCEDURE:XRAY HIP MIN 2VW-RT COMPARISON:[facility], CR, PELVIS AP, 11/19/2013, 00:00 AM. INDICATIONS:M25.551 PAIN IN RIGHT HIP FINDINGS: BONES:Moderately advanced degenerative change. There is acetabular sclerosis and hypertrophy. No fracture. Alignment satisfactory. Partially seen surgical change lumbar spine JOINTS:Normal. SOFT TISSUES:Normal. OTHER:No additional findings. CONCLUSION:Moderately advanced degenerative change. No acute superimposed findings Dictated by: Sai Avila MD on 06/27/2018 at 11:37 AM
== END | disposition home or self-care (01) ==
LOC: RAD 09:41
PROVIDERS: ATTEND Nurse Practitioner Family
DX: M16.0 Bilateral primary osteoarthritis of hip (principal)
CPT/HCPCS: 73502; 73521

== ENCOUNTER → 2018-08-08 | Outpatient (CLI) | payer OTHER ==
[2018-08-08 10:43] LABS: CALCIUM 9.3 mg/dL (8.4-10.5); CARBON DIOXIDE 26.9 mmol/L (20.0-32)
== END | disposition home or self-care (01) ==
LOC: LAB 09:38
PROVIDERS: ATTEND Nurse Practitioner Family
DX: E11.42 Type 2 diabetes mellitus with diabetic polyneuropathy (principal); E78.00 Pure hypercholesterolemia, unspecified; Z79.899 Other long term (current) drug therapy
CPT/HCPCS: 36415; 80053; 80061; 82306; 82607; 83036; 84439; 84443

== ENCOUNTER → 2018-11-06 | Outpatient (CLI) | payer OTHER ==
[~2018-11-06] MED LIST changes: +CYAN-26 PO; -CYAN10005 PO
[2018-11-06 09:26] LABS: BASOPHIL # 0.1 10^3/uL (0.0-0.1); BASOPHIL % 0.4 % (0.0-0.2); EOSINOPHIL # 0.3 10^3/uL (0.0-0.2); EOSINOPHIL % 2.2 % (0.0-5.0); HEMOGLOBIN 16.1 g/dL (13.9-16.3); LYMPHOCYTES # 2.3 10^3/uL (1.0-4.8); LYMPHOCYTES % 19.8 % (24.0-44.0); MEAN CELL HGB 30.6 pg (26-34); MEAN CELL HGB CONCENTRATION 35.8 g/dL (33-37); MEAN CORP VOLUME 85.4 fL (78-100); MEAN PLATELET VOLUME 10.5 fL (7.8-11.0); MONOCYTES # 1.1 10^3/uL (0.3-0.8); MONOCYTES % 9.5 % (5.0-12.0); NEUTROPHILS % 67.8 % (41.0-85.0); RED CELL DISTRIBUTION WIDTH 13.7 % (11.5-14.5); WHITE BLOOD CELL 11.8 10^3/uL (4.5-11.0)
[2018-11-06 09:43] LABS: CALCIUM 9.3 mg/dL (8.4-10.5); CARBON DIOXIDE 28.8 mmol/L (20.0-32)
== END | disposition home or self-care (01) ==
LOC: LAB 09:10
PROVIDERS: ATTEND Nurse Practitioner Family
DX: E11.65 Type 2 diabetes mellitus with hyperglycemia (principal); D72.89 Other specified disorders of white blood cells; E78.5 Hyperlipidemia, unspecified; I10 Essential (primary) hypertension
CPT/HCPCS: 36415; 80053; 80061; 82043; 83036; 84550; 85025

== ENCOUNTER → 2018-12-24 | Outpatient (CLI) | payer OTHER ==
--- NOTE | 2018-12-24 13:00 | DIREP ---
PROCEDURE:CT PELVIS W/O COMPARISON:None. INDICATIONS:M54.16 RADICULOPATHY , M48.06 SPINAL STENOSIS TECHNIQUE:Axial images were created through the pelvis without intravenous contrast material. No oral contrast was administered. The lack of oral contrast limits assessment of the bowel Sagittal and coronal reconstructions were performed from source images. FINDINGS: AORTA/VASCULAR:Atherosclerosis. RETROPERITONEUM:Normal. No mass or adenopathy. BOWEL/MESENTERY:Normal. There is no intestinal obstruction, free fluid, free air or mesenteric inflammatory changes. ABDOMINAL WALL:Normal. No mass or hernia. PELVIC ORGANS:Normal. No visible mass. Pelvic organs appropriate for patient age. BONES:Bilateral sacroiliac fusion. Moderate to advanced bilateral femoral acetabular osteoarthritis. No acute fracture. Previous posterior lumbar interbody fusion and laminectomy changes L4-5. Partially visualized lower lumbar degenerative joint disease. OTHER:Negative. CONCLUSION: 1. Chronic multifocal degenerative joint disease as detailed above. 2. Partially visualized postsurgical changes of the lower lumbar spine, without acute fracture. Dictated by: Jairon Kaur DO on 12/24/2018 at 12:55 PM
--- NOTE | 2018-12-24 14:56 | DIREP ---
PROCEDURE: CT SPINE LUMBAR W/O TECHNIQUE:Axial cuts were obtained through the lumbar spine. The images were viewed at bone settings. COMPARISON:[facility], MR, MRI SPINE LUMBAR W/O, 12/23/2018, 02:39 PM. [facility], MR, MRI SPINE LUMBAR W/O, 08/06/2017, 03:06 PM. INDICATIONS:M54.16 RADICULOPATHY , M48.06 SPINAL STENOSIS FINDINGS: ALIGNMENT:The grade 1 anterolisthesis L4 on L5. VERTEBRAE:Posterior lumbar interbody fusion L4-5.. PARASPINAL AREA:Normal. OTHER:Atherosclerosis of the aorta. LUMBAR DISC LEVELS T12-L1:Normal. L1-L2:Normal. L2-L3:Minimal disc bulge, resulting in mild bilateral neural foraminal and spinal canal narrowing.. L3-L4:Previous L4 laminectomy. Circumferential disc bulge resulting in moderate right and mild left neural foraminal narrowing. Mild spinal canal narrowing. L4-L5:L4 and L5 laminectomies. Posterior disc bulge without visualized spinal canal narrowing. Severe bilateral neural foraminal narrowing, right greater than left. L5-S1:Moderate right and severe left neural foraminal narrowing from posterior disc bulge and moderate bilateral facet disease. CONCLUSION:Multilevel postsurgical and degenerative changes as detailed above. Dictated by: Jairon Kaur DO on 12/24/2018 at 02:49 PM
--- NOTE | 2018-12-25 12:59 | DIREP ---
PROCEDURE:NM BONE SCAN TOTAL BODY/ROBERT COMPARISON:[facility], CT, CT PELVIS W/O, 12/24/2018, 12:27 PM. [facility], CT, CT SPINE LUMBAR W/O, 12/24/2018, 12:31 PM. INDICATIONS:M54.16 RADICULOPATHY , M48.06 SPINAL STENOSIS TECHNIQUE:After obtaining the patient's consent, Technetium 99m MDP was injected intravenously. Whole body plantar images were obtained approximately 4 hours later. PHARMACEUTICAL:Technetium 99m MDP, 25.1 mCi. FINDINGS: Distribution of radiotracer between the soft tissues and skeleton is within normal limits. Renal excretion appears symmetric. Activity most consistent with degenerative change is noted within the bilateral knees, mid feet, ankles, wrists, at metacarpophalangeal and interphalangeal joints, acromioclavicular joints, and glenohumeral joints. Degenerative uptake also seen through multiple levels of the spine and bilateral sacroilliac joint CONCLUSION: Multilevel degenerative uptake as detailed above. No evidence of acute fracture Dictated by: Jairon Kaur DO on 12/25/2018 at 12:54 PM
== END | disposition home or self-care (01) ==
LOC: RAD 11:49
PROVIDERS: ATTEND Neurological Surgery
DX: M47.816 Spondylosis without myelopathy or radiculopathy, lumbar region (principal)
CPT/HCPCS: 72131; 72192; 78306; A9503

== ENCOUNTER → 2019-04-09 | Outpatient (CLI) | payer OTHER ==
[~2019-04-09] MED LIST changes: +LEXISCAN IV ONE
--- NOTE | 2019-04-10 04:43 | STRESS ---
DATE OF SERVICE: 04/09/2019 INDICATION FOR PROCEDURE: Chest pain. FINDINGS: Baseline EKG shows normal sinus rhythm with nonspecific ST-T wave changes and an old inferior infarct. Stress EKG shows normal sinus rhythm, unchanged from baseline. Recovery EKG shows normal sinus rhythm, unchanged from baseline. Blood pressure at rest is noted to be 105/77 and remained the same during stress. At recovery, the blood pressure is noted to be 135/68. The heart rate is noted to be 77 beats per minute at rest and juan a to 79 beats per minute during stress. At recovery, the heart rate was noted to be 88 beats per minute. There were no significant symptoms noted during stress. Blood pressure and heart rate were appropriate for stress test. There were no arrhythmias noted during stress. EKG portion of the stress test shows no evidence of ischemia. Nuclear images reveal large area of ric-infarct ischemia involving the inferior wall of moderate intensity and severity. Left ventricular ejection fraction is 76%. EDV is 62 mL, ESV is 15 mL. Left ventricle is normal in size. Gated motion images showed no evidence of wall motion abnormalities. TID is noted to be 1.03. There is no evidence of diaphragmatic attenuation artifact. RECOMMENDATION: There is a large area of fixed perfusion defect with ric-infarct ischemia involving the inferior wall. This is an abnormal study. Recommend left heart catheterization. VAMSI STORM D.O. MICHAEL NICHOLSON/verónica JOB# [id number]
== END | disposition home or self-care (01) ==
LOC: RAD 11:58
PROVIDERS: ATTEND Internal Medicine Interventional Cardiology
DX: I08.8 Other rheumatic multiple valve diseases (principal); I25.10 Atherosclerotic heart disease of native coronary artery without angina pectoris
CPT/HCPCS: 78452; 93017; 93306; A9500; J2785

== ENCOUNTER → 2019-04-22 | Day surgery (SDC) | payer OTHER ==
[2019-04-17 10:27] VITALS: BP 106/63
--- NOTE | 2019-04-17 11:23 | PCM.EKG ---
[facility] Test Date: 2019-04-17 Test Time: 10:48:18 Pat Name: MARY FLORES Department: Room: Gender: M Kinesiology Professor: AWLVCristi : 1950 Requested By: VAMSI DEL RIO Order Number: [id number] Reading MD: Vamsi Del Rio Measurements Intervals Cooks Rate: 73 P: 40 MI: 186 QRS: 69 QRSD: 92 T: 73 QT: 400 QTc: 440 Interpretive Statements Normal sinus rhythm Non-specific ST-T wave changes No previous ECG available for comparison Electronically Signed On 04-17-2019 19:29:14 EMG TECHNICIAN by Vamsi Del Rio Please click the below link to view image of tracing.
[2019-04-17 11:26] LABS: BASOPHIL % 0.3 % (0.0-0.2); EOSINOPHIL # 0.1 10^3/uL (0.0-0.2); EOSINOPHIL % 0.4 % (0.0-5.0); LYMPHOCYTES # 1.93 10^3/uL1 (1.0-4.8); LYMPHOCYTES % 16.1 % (24.0-44.0); MEAN CORP HGB 30.2 pg (26-34); MONOCYTES % 8.2 % (5.0-12.0); NEUTROPHILS % 74.8 % (41.0-85.0); PLATELET COUNT 205 10^3/uL (150-400); RED CELL DISTRIBUTION WIDTH 13.8 % (11.5-14.5)
[2019-04-17 11:44] LABS: CARBON DIOXIDE 26.4 mmol/L (20.0-32)
[2019-04-22] VITALS (14 sets, daily range): BP systolic 98–128; BP diastolic 60–72
[~2019-04-22] VITALS: Ht 177.8 cm; Wt 117.9 kg
[~2019-04-22] MED LIST changes: +ATOR40TA PO; +DULA0.75 SQ; +DULO60CA7 PO; +EMPA10TA PO; +HEPARIN ONE; -LEXISCAN IV ONE; +LOSA50TA14 PO; +NS 1000ML 1,000 ML ONE; +ONDA4TAB13 PO; +PREG150C PO; +ROSU20TA2 PO; +SUBLIMAZE ONE; +VERSED ONE; +XYLOCAINE ONE
[2019-04-22] MEDS: TYLENOL PO ONE (13:33)
--- NOTE | 2019-04-22 22:09 | [facility] ---
DATE OF SERVICE: 04/22/2019 INDICATION FOR PROCEDURE: Chest pain. This is a 68-year-old male who was initially seen in the outpatient setting with symptoms of chest discomfort. Subsequently, underwent a cardiac stress test which was noted to be abnormal. In view of this, he was set up for heart catheterization. Informed consents were obtained and the patient was taken to the cardiac catheterization suite. PROCEDURES PERFORMED: 1. Selective coronary angiography. 2. Left ventriculography. 3. Left ventricular ejection fraction of 55%. 4. LVEDP of 12. 5. Right common femoral angiography. PROCEDURE DETAILS: Access was obtained using a micropuncture kit to cannulate the right common femoral artery. The 4-Libyan sheath was then upsized to a 6-Libyan regular short sheath. Diagnostic angiography was carried out using the Mnotrell left catheter to engage the left main. The left main was noted to be angiographically normal. It bifurcates into the left anterior descending artery and the left circumflex artery. The left anterior descending artery is noted to have mild luminal irregularities. There is a patent proximal stent in the LAD. The LAD runs in the interventricular groove to the apex to form a type 2 LAD. It gives off a medium sized caliber diagonal branch that is noted to have mild luminal irregularities. The left circumflex artery is noted to be nondominant with mild luminal irregularities. It gives off 2 obtuse marginal branches. The first obtuse marginal branch has a 30-40% proximal lesion. The second obtuse marginal branch has a 50-60% in-stent restenotic lesion in the distal segment of the vessel. The ramus intermedius branch is noted to have mild luminal irregularities. Montrell left catheter was then exchanged for a Montrell right which was used to cross the aortic valve into the left ventricle. Left ventriculography was performed. LVEF was noted to be 60%. Montrell right catheter was then used to engage the RCA. The RCA was noted to have a proximal 40% lesion and a distal 40% focal lesion as well. RCA is noted to be dominant bifurcating distally to an RPL and RPDA branch, both noted to have mild luminal irregularities. Montrell right catheter was then taken out and hemostasis was established using the 6-Libyan MynxGrip. The patient left the slab off mill tender in stable condition. There were no complications. IMPRESSION: 1. Nonobstructive coronary artery disease. 2. Selective coronary angiography. 3. Left ventriculography. 4. LVEDP of 12. 5. LVEF of 60%. 6. Hemostasis established using a 6-Libyan MynxGrip. RECOMMENDATIONS: No coronary intervention is necessary at this time. Lifestyle modification factors have been strongly advised. The patient has been instructed to follow up with me in the office in 2 weeks upon discharge. VAMSI STORM D.O. DR: BHARAT/verónica JOB# [id number]
== END | disposition home or self-care (01) | DRG 303 ==
LOC: CCL 08:00
PROVIDERS: ATTEND Internal Medicine Interventional Cardiology
DX: I25.10 Atherosclerotic heart disease of native coronary artery without angina pectoris (principal); I10 Essential (primary) hypertension; E11.21 Type 2 diabetes mellitus with diabetic nephropathy; E78.5 Hyperlipidemia, unspecified; Z98.890 Other specified postprocedural states; Z88.8 Allergy status to other drugs, medicaments and biological substances; Z79.01 Long term (current) use of anticoagulants; Z79.82 Long term (current) use of aspirin; Z79.899 Other long term (current) drug therapy; Z82.49 Family history of ischemic heart disease and other diseases of the circulatory system; Z82.5 Family history of asthma and other chronic lower respiratory diseases
CPT/HCPCS: 36415; 80053; 82948; 85025; 85610; 85730; 93005; 93458; 99152; C1769; C1894 ×2; J1644 ×3; J2250 ×2; J3010 ×2; J7030; Q9967; C1758

== ENCOUNTER → 2019-06-05 | Outpatient (CLI) | payer OTHER ==
[~2019-06-05] MED LIST changes: -HEPARIN ONE; -NS 1000ML 1,000 ML ONE; -SUBLIMAZE ONE; -VERSED ONE; -XYLOCAINE ONE
--- NOTE | 2019-06-05 21:32 | PRP ---
DATE OF PROCEDURE: 06/06/2019 PROCEDURE: Arterial Doppler ultrasound of the bilateral lower extremities. INDICATION FOR PROCEDURE: Bilateral intermittent claudication symptoms. FINDINGS: Right lower extremity: The maximum flow velocity displayed by the right common femoral artery is noted to be 141.1 cm/sec with triphasic waveforms seen. The right profunda femoris artery shows a flow velocity of 50.5 cm/sec with biphasic waveforms seen. The right superficial femoral artery displays a maximum flow velocity of 108.6 cm/sec with triphasic waveforms seen throughout. The right popliteal artery displays a maximum flow velocity of 54.2 cm/sec with biphasic and triphasic waveforms seen in the proximal and distal segments respectively. The right posterior tibial artery displays a maximum flow velocity of 139.7 cm/sec with triphasic waveforms seen throughout. The right anterior tibial artery displaced a maximum flow velocity of 160.8 cm/sec in the proximal segment, which drops to 42.1 cm/sec in the midsegment with biphasic waveforms seen. The ankle brachial index of the right lower extremity is noted to be 0.8. Left lower extremity: Maximum flow velocity of the left common femoral artery is 114.5 cm/sec with triphasic waveforms seen. Maximum flow velocity of the left profunda femoris artery is 53.1 cm/sec with biphasic waveforms seen. The left superficial femoral artery shows a flow velocity of 97.3 cm/sec with biphasic waveforms seen in the proximal segment and triphasic waveforms seen in the mid to distal segments. The left popliteal artery displays the maximum flow velocity of 56.3 cm/sec with biphasic waveforms seen throughout. The left posterior tibial artery displays a maximum flow velocity of 107 cm/sec which drops significantly the distal segment to 58.5 cm/sec with biphasic waveforms seen throughout. The maximum flow velocity of the left anterior tibial artery is 56.8 cm/sec in the midsegment and dropped significantly to 13.2 cm/sec in the distal segments with monophasic waveforms seen in the proximal and distal segments of the left anterior tibial artery. BRITTA of the left lower extremity noted to be 1.03. IMPRESSION: 1. Mild peripheral arterial disease is visualized in the right common femoral as well as superficial femoral artery. 2. Significant drop in flow velocities between the mid to distal segment of the right posterior tibial artery suggestive of infrapopliteal disease involving the right posterior tibial artery. There is also notable significant drop in flow velocity between the proximal and mid segments of right anterior tibial artery, which is also suggestive of significant disease. Left lower extremity, common femoral artery, superficial femoral artery and popliteal artery displayed mild disease. Significant change in flow velocities in the left posterior tibial artery from the mid to distal segments is consistent with significant stenosis. There is also a significant change in flow velocities between the mid to distal segment of the left anterior tibial artery also consistent with significant stenosis. 3. Significant disease is visualized in the bilateral infrapopliteal vessels. RECOMMENDATIONS: CT angiography of the abdomen and pelvis with lower extremity runoffs to further delineate infrapopliteal lesions bilaterally is recommended. VASMI STORM D.O. DR: BHARAT/verónica JOB# [id number]
== END | disposition home or self-care (01) ==
LOC: RAD 12:55
PROVIDERS: ATTEND Internal Medicine Interventional Cardiology
DX: I73.9 Peripheral vascular disease, unspecified (principal)
CPT/HCPCS: 93922; 93925

== ENCOUNTER → 2019-06-12 | Outpatient (CLI) | payer OTHER ==
--- NOTE | 2019-06-12 12:10 | DIREP ---
PROCEDURE:CTA ABDOMEN W RUNOFF BILAT COMPARISON:None. INDICATIONS:I73.9 PVD TECHNIQUE:After obtaining the patient's consent, CTA images of the abdomen, pelvis, and lower extremities were obtained without and with non-ionic intravenous contrast material. Multi-planar reformatted/3-D images were created to optimize visualization of vascular anatomy. FINDINGS: AORTO-ILIAC:Moderate Atheromata distal abdominal aorta, no aneurysm. Extension into the common iliacs, no iliac aneurysms. Normal bifurcation of both common iliacs.. RIGHT LOWER EXTREMITY:Mild atheromatous plaque common femoral and superficial femoral. Normal trifurcation. Slightly atretic peroneal branch. Normal anterior tibial and posterior tibial branches. LEFT LOWER EXTREMITY:Mild atheromatous plaque common femoral and superficial femoral. No focal stenosis detected. Normal trifurcation; atretic and/or intermittently occluded anterior tibial with no flow detected distally. LIMITED CHEST:Normal. LIVER:Normal. BILIARY:Cholecystectomy. PANCREAS:Normal. SPLEEN:Normal. KIDNEYS:Single punctate lower pole nephrolith less than 5 mm in diameter, nonobstructing, left kidney. ADRENALS:Upper RETROPERITONEUM:Normal. BOWEL/MESENTERY:Normal. ABDOMINAL WALL:Focal skin thickening or subdermal scarring over the right groin may represent previous catheter study BONES:Laminectomy L4-5 posterior fusion PELVIS:Normal OTHER:Negative. CONCLUSION:Moderate atheromatous disease distal abdominal aorta with bilateral peripheral vascular disease, most pronounced in the anterior tibial artery on the left. No aneurysm. Incidental left nonobstructing nephrolith. Dictated by: Sneha See MD on 06/12/2019 at 11:40 AM
== END | disposition home or self-care (01) ==
LOC: RAD 09:23
PROVIDERS: ATTEND Internal Medicine Interventional Cardiology
DX: I73.89 Other specified peripheral vascular diseases (principal)
CPT/HCPCS: 36415; 75635; 82565; Q9967

== ENCOUNTER 2019-10-08 22:57 | Emergency (ER) | payer MEDICARE, OTHER ==
[~2019-10-08] VITALS: Ht 182.9 cm; Wt 118.8 kg
[~2019-10-08 22:57] MED LIST changes: -ASPI-484 PO; +ASPI-485 PO
[2019-10-08 23:07] VITALS: BP 125/70
[2019-10-08] MEDS ORDERED: LIDOCAINE 1% VIAL ONE (23:15)
[2019-10-08] MEDS ORDERED: TRIPLE ANTIBIOTIC OINTMENT TP ONE (23:23)
[2019-10-08] MEDS ORDERED: ADACEL VIAL IM ONE (23:46)
--- NOTE | 2019-10-08 23:48 | ER.PDOC ---
General Chief Complaint: Extremities Stated Complaint: FINGER LAC Time seen by MD: 23:18 Source: patient Exam Limitations: no limitations History of Present Illness Initial Comments Patient sliced off the end of his thumb while cutting onions tonight. Last tetanus unknown. Occurred: just prior to arrival Where: home Severity: mild Context: laceration Location of Injury: (L) fingers (thumb) Allergies: Coded Allergies: No Known Allergies (Unverified , 04/17/19) Home Meds Active Scripts Atorvastatin 40MG (LIPITOR 40MG) 40 Mg Tablet, 1 TAB PO HS, #90 TAB 1 Refill Prov:VAMSI STORM DO 04/22/19 Reported Medications Ondansetron (ONDANSETRON ODT) 4 Mg Tab.rapdis, 4 MG PO DAILY24 PRN for NAUSEA, TAB 04/17/19 Empagliflozin (Jardiance) 10 Mg Tablet, 10 MG PO DAILY24, TAB 04/17/19 Dulaglutide (Trulicity) 0.75 Mg/0.5 Ml Pen.injctr, 0.75 MG SQ Q7D, UNITS 04/17/19 Losartan Potassium (LOSARTAN POTASSIUM) 50 Mg Tablet, 1 TAB PO DAILY, #30 TAB 5 Refills 04/17/19 Pregabalin (LYRICA) 150 Mg Capsule, 1 CAP PO BID, #60 CAP 5 Refills 04/17/19 Duloxetine Hcl (CYMBALTA) 60 Mg Capsule.dr, 1 CAP PO DAILY, #90 CAP 3 Refills 04/17/19 Diltiazem Hcl (DILTIAZEM 24HR ER) 120 Mg Cap.er.24h, 1 CAP PO DAILY, #90 CAP 1 Refill 10/27/16 Aspirin (ASPIR 81) 81 Mg Tablet.dr, 1 TAB PO HS, #30 TAB 4 Refills 07/28/16 Metformin Hcl (METFORMIN HCL) 1,000 Mg Tablet, 1 TAB PO BID, #60 TAB 5 Refills 07/06/16 Esomeprazole Magnesium (NEXIUM) 40 Mg Capsule.dr, 40 MG PO DAILY 11/19/13 Atenolol 50MG (TENORMIN 50MG) 50 Mg Tablet, 50 MG PO DAILY for HYPERTENSION, #30 TAB 11/19/13 Past Medical History Medical History: arrhythmia, cardiac problems, diabetes, GERD, high cholesterol, heart attack, hypertension Surgical History: back, cholecystectomy, stent Social History Alcohol Use: none Drug Use: none Review of Systems Constitutional: no symptoms reported EENTM: no symptoms reported Respiratory: no symptoms reported Cardiovascular: no symptoms reported Gastrointestinal: no symptoms reported Musculoskeletal: no symptoms reported Skin: see HPI Physical Exam General Appearance: Alert, No Apparent Distress Hand: nml inspection Wrist: nml inspection 1 - avulsed tip of finger Vascular: no vascular compromise (bleeding freely) Forearm/Elbow/Arm: uninjured above wrist Head/ENT: nml inspection Neck/Back: nml inspection Resp/CVS: no resp distress, lungs clear, heart sounds nml, reg. rate & rhythm ED LACERATION WOUND REPAIR # of Wounds/Lacerations Presen: 1 Wound Location & Length (Requi: completely avulsed distal tip of left thumb 1.5 cm diameter Wound Length (cm): 1 Anesthesia type: digital block Anesthesia: 1% Lidocaine Volume Anesthetic (ccs): 5 Wound's Depth, Shape: subcutaneous (distal tip completely avulsed) Wound Explored: no foreign body removed Layer Closure?: No (cautery required to stop bleeding) Sterile Dressing Applied?: Yes Results/Orders Results/Orders Vital Signs Date Time Temp Pulse Resp B/P (MAP) Pulse Ox O2 Delivery O2 Flow Rate FiO2 10/08/19 23:07 97.8 81 18 125/70 (88) 95 Room Air 10/08/19 23:07 97.8 81 18 95 10/08/19 23:07 97.8 81 18 Progress Progress digital block with cautery applied to stop persistent bleeding; bleeding ceased, sterile non adherent dressing applied with triple antibiotic ointment; tetanus updated; Departure Time of Disposition: 23:52 Disposition: 01 HOME, SELF-CARE Impression: Primary Impression: Traumatic amputation of tip of left thumb Condition: Improved Patient Instructions: Fingertip Injuries and Amputations Referrals: DUSTIN HAIR APRN (PCP) PRIMARY CARE PROVIDER Additional Instructions: Maintain pressure bandage x 2 days. After that, apply triple antibiotic ointment and bandage daily until healed. Keep wound clean and dry. No dis hwashing until wound completely heals. REturn to ER if you notice any evidence of infection. Follow up with your doctor next week for reevaluation. Duration or Time Spent with Pa: 45 min Problem Qualifiers Primary Impression: Traumatic amputation of tip of left thumb Encounter type: initial encounter Qualified Codes: S68.012A - Complete traumatic metacarpophalangeal amputation of left thumb, initial encounter JERMAINE BRYAN DO Oct 08, 2019 23:48
[2019-10-08] MEDS ORDERED: NORCO 10MG PO STA (23:55)
[2019-10-08] MEDS ORDERED: NORCO 10MG PO ONE (23:55)
[2019-10-09] MEDS ORDERED: ADACEL VIAL IM ONE
== END 2019-10-09 00:20 | disposition home or self-care (01) ==
LOC: ER 22:57
DX: S68.012A Complete traumatic metacarpophalangeal amputation of left thumb, initial encounter (principal); E11.9 Type 2 diabetes mellitus without complications; E78.00 Pure hypercholesterolemia, unspecified; I25.2 Old myocardial infarction; I10 Essential (primary) hypertension; K21.9 Gastro-esophageal reflux disease without esophagitis; Z79.82 Long term (current) use of aspirin; Z79.899 Other long term (current) drug therapy; Z90.49 Acquired absence of other specified parts of digestive tract; W26.0XXA Contact with knife, initial encounter; Y93.89 Activity, other specified; Y92.098 Other place in other non-institutional residence as the place of occurrence of the external cause; Y99.8 Other external cause status
CPT/HCPCS: 12041; 90471; 90715; 99284; J2001; 11730; 99283

== ENCOUNTER → 2019-11-10 | Outpatient (CLI) | payer MEDICARE, OTHER | END | disposition home or self-care (01) | LOC: LAB 09:23 | PROVIDERS: ATTEND Nurse Practitioner Family | DX: G70.00 Myasthenia gravis without (acute) exacerbation (principal) | CPT/HCPCS: 36415 ==

== ENCOUNTER → 2019-11-11 | Outpatient (CLI) | payer MEDICARE, OTHER ==
--- NOTE | 2019-11-11 10:39 | DIREP ---
PROCEDURE:CT CHEST WITHOUT AND WITH CONTRAST TECHNIQUE:Axial cuts were obtained through the chest. Then following the intravenous administration of contrast material, additional cuts were obtained through the chest. The images were viewed at lung and soft tissue settings. Sagittal and coronal reconstructions are provided. COMPARISON:None. INDICATIONS:G70.0 Myasthenia gravis FINDINGS: LUNGS:Mild hyperinflation and upper lobe peripheral interstitial fibrosis. No infiltrate or pleural effusion. CARDIAC:Normal size heart, coronary artery calcifications and normal pulmonary vascularity. THORACIC AORTA:Calcification without dilatation intimal flap. MEDIASTINUM/GLENN:No anterior mediastinal mass or pathologic adenopathy. CHEST WALL:Normal. LIMITED ABDOMEN:Mild hepatic fatty infiltration. Cholecystectomy. Normal adrenals. BONES:Chronic thoracic spondylosis. THYROID:Normal. OTHER:No additional findings. CONCLUSION: 1. Mild chronic lung disease. 2. No anterior mediastinal mass. 3. Mild hepatic steatosis. Dictated by: Betsy Miranda MD on 11/11/2019 at 10:31 AM
== END | disposition home or self-care (01) ==
LOC: RAD 08:49
PROVIDERS: ATTEND Nurse Practitioner Family
DX: J84.10 Pulmonary fibrosis, unspecified (principal); I70.0 Atherosclerosis of aorta; K76.0 Fatty (change of) liver, not elsewhere classified; M47.814 Spondylosis without myelopathy or radiculopathy, thoracic region; G70.00 Myasthenia gravis without (acute) exacerbation; J98.4 Other disorders of lung
CPT/HCPCS: 36415; 71270; 82565; Q9967

== ENCOUNTER → 2020-04-23 | Outpatient (CLI) | payer MEDICARE, OTHER ==
[~2020-04-23] MED LIST changes: -LISI-414 PO; +LISI-593 PO
--- NOTE | 2020-04-23 16:43 | PCM.ECHO ---
APPROVED REPORT EXAM: Comprehensive 2D, Doppler, and color-flow Echocardiogram. Patient Location: OUT-PATIENT Indications Hypertension/HDD 2D Dimensions LVOT Diameter 2.74 (1.8-2.4cm) LVEF(%) 69.10 (>50%) M-Mode Dimensions RVDd 1.40 (2.1-3.2cm) Left Atrium(MM) 4.25 (2.5-4.0cm) IVSd 0.90 (0.7-1.1cm) Aortic Root 3.00 (2.2-3.7cm) LVDd 5.40 (4.0-5.6cm) Aortic Cusp Exc 1.55 (1.5-2.0cm) PWd 0.75 (0.7-1.1cm) MV EPSS 0.59 (<0.5cm) IVSs 1.65 cm FS (%) 36.40 % LVDs 3.40 (2.0-3.8cm) ESV(Teich) 48.54 ml PWs 1.10 cm LVEF(%) 65.66 (>50%) Volumes Biplane 2D LV Volumes Biplane 2D LA Volumes LVEDv A4C 140.23 mL LA ESV Index LVESv A4C 43.33 mL Aortic Valve AoV Peak Frandy. 0.95 m/s AoV VTI 19.20 cm AO Peak GR. 3.60 mmHg AO Mean GR. 2.05 mmHg LVOT VTI 19.09 cm LVOT Peak Frandy. 0.88 m/s ROSY(VTI)/BSA 5.87 cm2/m2 ROSY (VTI) 5.87 cm2 Mitral Valve MV E Velocity 0.70m/s MR Peak Gr. 13.20mmHg MV A Velocity 0.80m/s TDI Lateral E' P. V 0.07m/s Medial E' P. V 0.05m/s Pulmonary Valve PV Peak Velocity 0.70m/s PV Peak Grad. 2.15mmHg RVOT VTI 16.91cm Tricuspid Valve TR P. Velocity 1.65m/s RAP ESTIMATE 10.00mmHg TR Peak Gr. 11.43mmHg RVSP 21.43mmHg LEFT VENTRICLE The left ventricle is normal size. The left ventricular systolic function is normal. The left ventricular ejection fraction is within the normal range. There is normal left ventricular wall thickness. There is normal LV segmental wall motion. There is no ventricular septal defect visualized. No left ventricle thrombus noted on this study. LVEF is 60%. RIGHT VENTRICLE The right ventricle is normal size. The right ventricular systolic function is normal. There is normal right ventricular wall thickness. ATRIA The left atrium size is normal. The right atrium size is normal. The interatrial septum is intact with no evidence for an atrial septal defect. AORTIC VALVE The aortic valve is normal in structure. There is no aortic valvular stenosis. No aortic regurgitation is present. There is no aortic valvular vegetation. MITRAL VALVE The mitral valve is normal in structure. There is no mitral valve stenosis. Mild mitral regurgitation. There is no evidence of mitral valve vegetations. TRICUSPID VALVE The tricuspid valve is normal in structure. There is no tricuspid valve stenosis. Mild tricuspid regurgitation. There is no tricuspid valve vegetations. PULMONIC VALVE The pulmonary valve is normal in structure. There is no pulmonic valvular stenosis. There is no pulmonic valvular regurgitation. GREAT VESSELS The aortic root is normal in size. Pulmonary artery is not well visualized. Aortic arch is not well visualized. The IVC is normal in size and collapses >50% with inspiration. PERICARDIUM There is no pericardial effusion. There is no pleural effusion. Other Information Study Quality: Fair <Conclusion> The left ventricular systolic function is normal. LVEF is 60%. Mild mitral regurgitation. Mild tricuspid regurgitation. Electronically signed by : VAMSI STORM. 04/23/2020 16:43:01
== END | disposition home or self-care (01) ==
LOC: RT 13:54
PROVIDERS: ATTEND Internal Medicine Interventional Cardiology
DX: I08.1 Rheumatic disorders of both mitral and tricuspid valves (principal); I10 Essential (primary) hypertension
CPT/HCPCS: 93306

== ENCOUNTER 2020-05-03 07:00 | Day surgery (SDC) | payer MEDICARE, OTHER ==
[2020-04-28 10:39] VITALS: BP 121/68
--- NOTE | 2020-04-28 11:05 | PCM.EKG ---
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
[2020-04-28 11:06] LABS: BASOPHIL % 0.2 % (0.0-0.2); EOSINOPHIL % 0.3 % (0.0-5.0); LYMPHOCYTES # 2.28 10^3/uL1 (1.0-4.8); LYMPHOCYTES % 18.9 % (24.0-44.0); MEAN CORP HGB 31.8 pg (26-34); MONOCYTES # 0.8 10^3/uL (0.3-0.8); MONOCYTES % 6.6 % (5.0-12.0); NEUTROPHIL # 8.8 10^3/uL (1.8-7.7); NEUTROPHILS % 73.3 % (41.0-85.0); PLATELET COUNT 187 10^3/uL (150-400); RED CELL DISTRIBUTION WIDTH 13.1 % (11.5-14.5)
[2020-04-28 11:36] LABS: CALCIUM 9.2 mg/dL (8.4-10.5); CARBON DIOXIDE 26.2 mmol/L (20.0-32)
[~2020-05-03] VITALS: Ht 182.9 cm; Wt 119.4 kg
[~2020-05-03 07:00] MED LIST changes: +MOVIPREP POWDER PACKET PO ONE; +NS 1000ML 1,000 ML IV SCH; +NS 1000ML 1,000 ML ONE; +PRED5TAB17 PO; +[UNRECOGNIZED DRUG - CODE] PO
[2020-05-03 07:07] VITALS: BP 103/75
[2020-05-03] MEDS ORDERED: LIDOCAINE 2% VIAL ONE (07:13)
[2020-05-03] MEDS ORDERED: DIPRIVAN IV ONE (07:14)
[2020-05-03] MEDS ORDERED: SUBLIMAZE ONE (07:14)
[2020-05-03] MEDS ORDERED: VERSED ONE (07:15)
[2020-05-03] MEDS ORDERED: WATER ONE (07:26)
[2020-05-03 09:03] VITALS: BP 89/61
[2020-05-03 09:18] VITALS: BP 95/56
--- NOTE | 2020-05-03 09:18 | PRM.OPH ---
Immediate Post Op Report Immediate Post Op Report Imediate Post Op Report Preop diagnosis Screening colonoscopy Postoperative diagnosis Screening colonoscopy Rectal polyps at 13 and 15 cm Procedure Screening colonoscopy to cecum Surgeon Dr. Narayan Anesthesia Monitored anesthesia EBL Minimal Specimens Rectal polyps at 13 and 15 cm Prep Poor Complications None CEFERINO NARAYAN MD May 03, 2020 09:17
--- NOTE | 2020-05-03 09:30 | PRM.OPH ---
OPERATIVE REPORT OPERATIVE REPORT Patient was initially seen and identified in the preoperative area. After confirming the patient's identity H&P consents make sure that all of his questions were answered the patient was transferred from the preop area to the operating theater. He was then placed into the left lateral decubitus position. Hooked up to appropriate monitoring. Given propofol sedation and when appropriately sedated the procedure began. Of note the patient did report that he was still passing darker stool than what he had with previous bowel preps. Digital rectal exam was performed no masses were noted. Scope was inserted into the rectal cavity. Insufflated and with great difficulty due to large volumes of bowel prep solid stool the scope was very slowly advanced all the way to the cecum. This is the reason for the modifier 22. Once we are able to ultimately get to the cecum we were able to identify the ileocecal valve and what appeared to be the appendiceal orifice we can continue to clear bowel prep as we look for polyps throughout the colon. Due to the poor nature of the overall prep it is very possible that we missed polyps. We slowly withdrew the scope over greater than a 7-minute. From the cecum through the ascending colon through the transverse colon through the descending colon through the sigmoid colon where diverticuli were again noted some with stool in them and into the rectum. Once we got to the sigmoid rectal junction we noticed her first polyp at approximately 15 cm. It was taken with cold biopsy forceps and pictures taken pre and post. Just distal to that there appeared to be another polyp at approximately 13 cm which again was taken with cold biopsy forceps. The scope was brought back into the rectum retroflexed and the hemorrhoidal tissue was identified. Neither the biopsy sites appeared to be actively bleeding prior to with overall withdrawal. We will sucked out as much gas is physically possible. And then withdrew the scope. The patient was handed back over to anesthesia to be awoken from monitored anesthesia and for nursing to clean up the patient since the patient's had multiple stools during the procedure. The patient will need another colonoscopy in at least 2 years and will be seen in the office next week. The patient has tolerated the procedure well. CEFERINO BARLOW MD May 03, 2020 09:30
[2020-05-03 09:33] VITALS: BP 103/71
== END 2020-05-03 09:50 | disposition home or self-care (01) ==
LOC: SDC 07:00
PROVIDERS: ATTEND Surgery
DX: Z12.11 Encounter for screening for malignant neoplasm of colon (principal); K62.1 Rectal polyp; K57.30 Diverticulosis of large intestine without perforation or abscess without bleeding; K64.9 Unspecified hemorrhoids; E11.21 Type 2 diabetes mellitus with diabetic nephropathy; E11.65 Type 2 diabetes mellitus with hyperglycemia; E78.00 Pure hypercholesterolemia, unspecified; I73.9 Peripheral vascular disease, unspecified; I10 Essential (primary) hypertension; I25.10 Atherosclerotic heart disease of native coronary artery without angina pectoris; E66.3 Overweight; I48.91 Unspecified atrial fibrillation; K21.9 Gastro-esophageal reflux disease without esophagitis; F32.9 Major depressive disorder, single episode, unspecified; Z90.49 Acquired absence of other specified parts of digestive tract; Z98.890 Other specified postprocedural states; Z95.5 Presence of coronary angioplasty implant and graft; Z68.36 Body mass index [BMI] 36.0-36.9, adult; Z79.899 Other long term (current) drug therapy; Z79.84 Long term (current) use of oral hypoglycemic drugs; Z86.010 Personal history of colon polyps; Z98.1 Arthrodesis status; Z87.01 Personal history of pneumonia (recurrent); Z82.49 Family history of ischemic heart disease and other diseases of the circulatory system; Z82.61 Family history of arthritis; Z87.891 Personal history of nicotine dependence; Z79.82 Long term (current) use of aspirin
CPT/HCPCS: 36415; 45380; 80053; 82948; 83036; 85025; 85610; 85730; 88305; 93005; J2001; J2250; J3010; J3490; J7030

== ENCOUNTER → 2020-08-18 | Outpatient (CLI) | payer MEDICARE, OTHER ==
[~2020-08-18] MED LIST changes: +DOXY-232 PO; -DOXY100C15 PO; -MOVIPREP POWDER PACKET PO ONE; -NS 1000ML 1,000 ML IV SCH; -NS 1000ML 1,000 ML ONE
--- NOTE | 2020-08-18 18:42 | DIREP ---
PROCEDURE:XRAY KNEE 2 VWS-RT COMPARISON:None. INDICATIONS:M25.561 PAIN IN RIGHT KNEE FINDINGS: BONES:No fracture identified. Degenerative change, including mild marginal osteophytosis and subchondral sclerosis. JOINTS:Tricompartmental narrowing, most pronounced within the medial femorotibial joint space. SOFT TISSUES:Normal. OTHER:No additional findings. CONCLUSION: 1. No fracture identified. 2. Degenerative change. Dictated by: Angelo Mejia MD on 08/18/2020 at 06:39 PM
== END | disposition home or self-care (01) ==
LOC: RAD 11:02
PROVIDERS: ATTEND Internal Medicine
DX: M17.11 Unilateral primary osteoarthritis, right knee (principal)
CPT/HCPCS: 73560

== ENCOUNTER → 2021-01-03 | Outpatient (CLI) | payer MEDICARE, OTHER ==
[~2021-01-03] MED LIST changes: -DULO60CA7 PO; +DULO60CA8 PO; +METH-632 PO; -METH10TA2 PO
== END | disposition home or self-care (01) ==
LOC: NPLAB 10:36
PROVIDERS: ATTEND Internal Medicine
DX: J06.9 Acute upper respiratory infection, unspecified (principal); J40 Bronchitis, not specified as acute or chronic; Z20.822 Contact with and (suspected) exposure to COVID-19
CPT/HCPCS: 87426

== ENCOUNTER → 2021-03-01 | Outpatient (CLI) | payer MEDICARE, OTHER ==
[~2021-03-01] MED LIST changes: -LISI-593 PO; +LISI5TAB18 PO
== END | disposition home or self-care (01) ==
LOC: NPLAB 12:15
PROVIDERS: ATTEND Internal Medicine
DX: J06.9 Acute upper respiratory infection, unspecified (principal); Z20.822 Contact with and (suspected) exposure to COVID-19
CPT/HCPCS: 87426